=== PATIENT | female | born 1945 | race Hispanic/Latino ===

== ENCOUNTER 2017-06-03 12:41 | Emergency (ER) | payer MEDICARE ==
[~2017-06-03 12:41] MED LIST: AMLO10TA2 PO; ASPI-555 PO; FURO20TA4 PO; INSNOV SQ; INSU100C6 SQ; ISOS5TAB5 PO; LEVO125 PO; LEVO125T11 PO; LISI-613 PO; LORA10TA7 PO; MECL-111 PO; MELO-106 PO; METF500T6 PO; ONDA4TAB10 PO; SIMV20TA6 PO; TYL3B PO
[2017-06-03 13:42] LABS: BASOPHILS % (AUTO) 0.6 % (0.0-5.0); EOSINOPHILS % (AUTO) 1.5 % (0.0-8.0); HEMATOCRIT 25.2 % (36-48); LYMPHOCYTES % (AUTO) 29.9 % (21.0-51.0); MEAN CORPUSCULAR HEMOGLOBIN 31.9 pg (27.0-33.0); MEAN CORPUSCULAR HGB CONC 34.8 g/dL (32.0-36.0); MEAN CORPUSCULAR VOLUME 91.4 fL (79-99); MONOCYTES % (AUTO) 9.5 % (3.0-13.0); NEUTROPHILS % (AUTO) 58.5 % (40.0-77.0); PLATELET COUNT (AUTO) 224 K/uL (130-400); RED BLOOD CELL COUNT(AUTO) 2.76 MIL/uL (4.00-5.50); RED CELL DISTRIBUTION WIDTH 15.2 % (11.0-15.5); WHITE BLOOD COUNT (AUTO) 5.5 K/uL (4.8-10.8)
[2017-06-03 13:56] LABS: CREATININE 1.7 mg/dL (0.5-1.5); POTASSIUM 4.8 mmol/L (3.5-5.1)
[2017-06-03 14:01] LABS: ALBUMIN 2.8 g/dL (3.5-5.0); BILIRUBIN,TOTAL 0.4 mg/dL (0.2-1.0)
[2017-06-03 14:09] LABS: INR 0.9 (0.85-1.15); PARTIAL THROMBOPLASTIN TIME 21.4 SEC (26.3-35.5); PROTHROMBIN TIME 9.5 SEC (9.6-11.6)
[2017-06-03] MEDS ORDERED: METOCLOPRAMIDE 10 MG TABLET ONE (19:28)
== END 2017-06-03 19:56 | disposition home or self-care (01) ==
LOC: EDH 12:41
DX: R11.2 Nausea with vomiting, unspecified (principal); E10.8 Type 1 diabetes mellitus with unspecified complications; M54.30 Sciatica, unspecified side; I10 Essential (primary) hypertension; R79.1 Abnormal coagulation profile; E07.9 Disorder of thyroid, unspecified; Z79.4 Long term (current) use of insulin
CPT/HCPCS: 36415; 76775; 80053; 82948; 83690; 85025; 85610; 85730; 86677; 93005

== ENCOUNTER 2017-06-05 18:09 | Inpatient (IN) | payer MEDICARE ==
[~2017-06-05] VITALS: Ht 149.9 cm; Wt 48.2 kg
[2017-06-05] MEDS ORDERED: ONDANSETRON HCL MDV 20ML 2 MG/ML VIAL ONE (19:12)
[2017-06-05 19:22] LABS: BASOPHILS % (AUTO) 0.7 % (0.0-5.0); EOSINOPHILS % (AUTO) 0.4 % (0.0-8.0); HEMATOCRIT 27.5 % (36-48); LYMPHOCYTES % (AUTO) 20.3 % (21.0-51.0); MEAN CORPUSCULAR HEMOGLOBIN 32.1 pg (27.0-33.0); MEAN CORPUSCULAR HGB CONC 34.7 g/dL (32.0-36.0); MEAN CORPUSCULAR VOLUME 92.6 fL (79-99); MONOCYTES % (AUTO) 8.6 % (3.0-13.0); NUCLEATED RED BLOOD CELLS 0.1 % (0.0-0.19); PLATELET COUNT (AUTO) 214 K/uL (130-400); RED BLOOD CELL COUNT(AUTO) 2.97 MIL/uL (4.00-5.50)
[2017-06-05 19:29] LABS: BILIRUBIN,TOTAL 0.7 mg/dL (0.2-1.0); CREATININE 1.6 mg/dL (0.5-1.5); TOTAL PROTEIN, SERUM 6.2 g/dL (6.0-8.3)
[2017-06-05 19:35] LABS: POTASSIUM 6.9 mmol/L (3.5-5.1)
[2017-06-05 19:53] LABS: INR 0.9 (0.85-1.15); PARTIAL THROMBOPLASTIN TIME 22.7 SEC (26.3-35.5); PROTHROMBIN TIME 9.5 SEC (9.6-11.6)
[2017-06-05 20:05] LABS: T4 (THYROXINE) 10.2 mcg/dL (4.7-13.3); THYROID STIMULATING HORMONE 0.11 uIU/mL (0.36-3.74)
[2017-06-05] MEDS ORDERED: ALBUTEROL SULFATE 0.083% 2.5 MG/3 ML INH IH ONE (21:13)
[2017-06-05] MEDS ORDERED: SODIUM BICARB 50MEQ 50ML VIAL ONE (21:17)
[2017-06-05] MEDS ORDERED: SODIUM POLYSTYRENE SULFONATE 15 GM/60 ML ML ONE (21:17)
[2017-06-05] MEDS ORDERED: INSULIN HUMULIN R 100 UNIT/ML 3ML ONE ×2 (21:18→22:53)
[2017-06-05] MEDS ORDERED: DEXTROSE 50%-WATER 50 ML DISP.SYRIN IV ONE (21:18)
[2017-06-05 21:48] LABS: BILIRUBIN,URINE Negative (NEGATIVE); COLOR,URINE Yellow (YELLOW); GLUCOSE, URINE (UA) >=1000 mg/dL (NEGATIVE); KETONES,URINE 40 mg/dL (NEGATIVE); LEUKOCYTE ESTERASE ,URINE Trace (NEGATIVE); NITRATE,URINE Positive (NEGATIVE); OCCULT BLOOD,URINE Negative (NEGATIVE); PROTEIN,URINE Negative (NEGATIVE)
[2017-06-05 21:49] LABS: APPEARANCE,URINE SLIGHTLY CLOUDY (CLEAR)
[2017-06-05 22:04] LABS: BACTERIA,URINE Few /HPF (None Seen); HYALINE CASTS, URINE 0-1 /LPF (0-1 /LPF); RBC,URINE 0-1 /HPF (0-1); SQUAMOUS EPITHELIAL CELL,UR Few /HPF (0-2)
[2017-06-05 22:08] LABS: CREATININE 1.7 mg/dL (0.5-1.5)
[2017-06-05 22:09] LABS: POTASSIUM 6.1 mmol/L (3.5-5.1)
[2017-06-05 22:31] LABS: ABG BASE EXCESS -10.7 mmol/L (-2.0-3.0); ABG HCO3 15.4 mmol/L (21.0-28.0); ABG OXYGEN SATURATION 92.7 % (95.0-99.0); ABG PCO2 36 mmHg (32-45)
[2017-06-05] MEDS ORDERED: SODIUM CHLORIDE 0.9% 100 ML IV ONE (22:51)
[2017-06-06] VITALS (21 sets, daily range): BP systolic 104–159; BP diastolic 46–81
[2017-06-06] MEDS ORDERED: IPRATROPIUM 0.5 MG/2.5 ML INH IH PRN (01:45)
[2017-06-06] MEDS ORDERED: POTASSIUM CHLORIDE 10% ELIXIR 20 MEQ/15 ML UDCUP PO PRN (01:45)
[2017-06-06] MEDS ORDERED: INSULIN REGULAR, HUMAN 3ML 100 UNIT in SODIUM CHLORIDE 0.9% 99 ML IV PRN ×2 (01:45)
[2017-06-06] MEDS ORDERED: POTASSIUM CHLORIDE 20MEQ/100ML 100 ML IV PRN (01:45)
[2017-06-06] MEDS ORDERED: LACTULOSE 20 GM/30 ML UDCUP PO PRN (01:45)
[2017-06-06] MEDS ORDERED: ONDANSETRON HCL 4 MG/2 ML VIAL IVP PRN (01:45)
[2017-06-06] MEDS ORDERED: CLONIDINE HCL 0.1 MG TABLET PO PRN (01:45)
[2017-06-06] MEDS ORDERED: DiphenhydrAMINE HCL 50 MG/ML VIAL IVP PRN (01:45)
[2017-06-06] MEDS: SODIUM CHLORIDE 0.9% 1000ML 1,000 ML IV SCH ×2 (01:45→08:41)
[2017-06-06] MEDS ORDERED: LIDOCAINE HCL-MPF 1% 2ML VIAL IJ PRN (01:45)
[2017-06-06] MEDS ORDERED: ACETAMINOPHEN 325 MG TAB PO PRN ×2 (01:45)
[2017-06-06] MEDS ORDERED: NITROGLYCERIN 0.4 MG SL TAB SL PRN (01:45)
[2017-06-06] MEDS ORDERED: POTASSIUM CHLORIDE 20 MEQ ERTAB PO PRN (01:45)
[2017-06-06] MEDS ORDERED: ONDANSETRON HCL MDV 20ML 2 MG/ML VIAL IVP PRN (02:15)
[2017-06-06] MEDS ORDERED: DEXTROSE 10%-WATER 1,000 ML IV ONE (03:21)
[2017-06-06 04:03] LABS: BASOPHILS % (AUTO) 0.2 % (0.0-5.0); HEMATOCRIT 28.2 % (36-48); MEAN CORPUSCULAR HGB CONC 33.6 g/dL (32.0-36.0); MEAN CORPUSCULAR VOLUME 92.1 fL (79-99); MONOCYTES % (AUTO) 5.9 % (3.0-13.0); NEUTROPHILS % (AUTO) 76.9 % (40.0-77.0); PLATELET COUNT (AUTO) 245 K/uL (130-400); RED BLOOD CELL COUNT(AUTO) 3.06 MIL/uL (4.00-5.50); RED CELL DISTRIBUTION WIDTH 15.1 % (11.0-15.5); WHITE BLOOD COUNT (AUTO) 8.2 K/uL (4.8-10.8)
[2017-06-06 04:08] LABS: CREATININE 1.8 mg/dL (0.5-1.5)
[2017-06-06 04:16] LABS: HEMOGLOBIN A1C 9.5 % (4.0-6.0)
[2017-06-06] MEDS ORDERED: DEXTROSE 10%-WATER 1,000 ML IV SCH (04:30)
[2017-06-06 04:40] LABS: ABG BASE EXCESS -0.2 mmol/L (-2.0-3.0); ABG HCO3 25.6 mmol/L (21.0-28.0); ABG OXYGEN SATURATION 69.3 % (95.0-99.0); ABG PCO2 46 mmHg (32-45)
[2017-06-06 04:42] LABS: ACETONE,BLOOD NEGATIVE (NEGATIVE)
[2017-06-06 05:08] LABS: CARBON DIOXIDE 23 mmol/L (21-32); CHLORIDE 101 mmol/L (101-111); CREATININE 1.8 mg/dL (0.5-1.5); GLOMERULAR FILTR. RATE CALC 30 mL/min (>60); GLUCOSE,RANDOM 132 mg/dL (70-105); POTASSIUM 5.3 mmol/L (3.5-5.1); SODIUM SERUM 141 mmol/L (136-145); UREA NITROGEN, BLOOD 22 mg/dL (7-18)
[2017-06-06] MEDS ORDERED: CITA10TA7 PO (06:14)
[2017-06-06] MEDS ORDERED: METO10TA3 PO (06:14)
[2017-06-06] MEDS ORDERED: METO25TA6 PO (06:14)
[2017-06-06 07:39] LABS: CREATININE 1.6 mg/dL (0.5-1.5); POTASSIUM 5.6 mmol/L (3.5-5.1)
[2017-06-06] MEDS ORDERED: ALPRAZOLAM 0.5 MG TABLET PO PRN (08:00)
[2017-06-06] MEDS ORDERED: METFORMIN HCL 500 MG TABLET PO SCH (08:00)
[2017-06-06] MEDS ORDERED: CEFTRIAXONE 1GM/D5W 50ML 50 ML IV SCH (08:00)
[2017-06-06] MEDS ORDERED: CEFTRIAXONE SODIUM 1 GM IVP SCH (08:15)
[2017-06-06] MEDS: ISOSORBIDE DINITRATE 10 MG TABLET PO SCH (08:19)
[2017-06-06] MEDS: ASPIRIN 81 MG EC TAB PO SCH (08:20)
[2017-06-06] MEDS: METOPROLOL TARTRATE 25 MG TAB PO SCH ×2 (08:21→21:03)
[2017-06-06] MEDS: ENOXAPARIN SODIUM 30 MG/0.3 ML SQ SCH (08:22)
[2017-06-06] MEDS: INSULIN LISPRO 100 UNIT/ML 3ML SQ SCH ×2 (08:41→20:58)
[2017-06-06] MEDS ORDERED: LISINOPRIL 20 MG TABLET PO SCH (09:00)
[2017-06-06] MEDS ORDERED: FAMOTIDINE 20MG TAB 20 MG TAB PO SCH (09:00)
[2017-06-06] MEDS ORDERED: CITALOPRAM 20 MG TABLET PO SCH (09:00)
[2017-06-06] MEDS ORDERED: SODIUM POLYSTYRENE SULFONATE 15 GM/60 ML ML PO SCH (10:30)
[2017-06-06] MEDS ORDERED: DEXTROSE 50%-WATER 50 ML DISP.SYRIN IV ONE ×2 (11:00→14:13)
[2017-06-06] MEDS: METOCLOPRAMIDE 10 MG TABLET PO SCH ×3 (11:11→21:02)
[2017-06-06 13:50] LABS: CHLORIDE,URINE RANDOM 57 mmol/L (110-250); POTASSIUM,URINE RANDOM 24 mmol/L (25-125); SODIUM,URINE RANDOM 50 mmol/l (40-220)
[2017-06-06 14:34] LABS: CREATININE 1.5 mg/dL (0.5-1.5); POTASSIUM 4.8 mmol/L (3.5-5.1)
[2017-06-06] MEDS ORDERED: DEXTROSE 5 %-0.45 % NACL 1,000 ML IV SCH (14:45)
[2017-06-06] MEDS ORDERED: ZOSYN 3.375GM+NS 50ML 50 ML IV SCH (16:45)
[2017-06-06 17:48] LABS: CREATININE 1.3 mg/dL (0.5-1.5); POTASSIUM 5.2 mmol/L (3.5-5.1)
[2017-06-06] MEDS: [UNRECOGNIZED DRUG - OTHER] IV SCH (18:01)
[2017-06-06] MEDS: MEROPENEM 1 GM VIAL IVP SCH (18:01)
[2017-06-06] MEDS: DOXYCYCLINE 100 MG IV SCH (18:01)
[2017-06-06] MEDS: FLUCONAZOLE 100 MG TAB PO SCH (18:03)
[2017-06-06] MEDS ORDERED: DEXTROSE 50%-WATER 50 ML DISP.SYRIN IV PRN (18:45)
[2017-06-06] MEDS: DEXTROSE 10%-WATER 1,000 ML IV SCH (19:00)
[2017-06-06] MEDS: HONEY 1 APPL/ML TUBE TP SCH (21:15)
[2017-06-07 03:36] LABS: HEMATOCRIT 26.4 % (36-48); MEAN CORPUSCULAR HEMOGLOBIN 31.7 pg (27.0-33.0); MEAN CORPUSCULAR HGB CONC 34.7 g/dL (32.0-36.0); MEAN CORPUSCULAR VOLUME 91.4 fL (79-99); PLATELET COUNT (AUTO) 182 K/uL (130-400); RED BLOOD CELL COUNT(AUTO) 2.89 MIL/uL (4.00-5.50); WHITE BLOOD COUNT (AUTO) 4.9 K/uL (4.8-10.8)
[2017-06-07 03:57] LABS: ALBUMIN 2.4 g/dL (3.5-5.0); BILIRUBIN,TOTAL 0.2 mg/dL (0.2-1.0); CREATININE 1.3 mg/dL (0.5-1.5); MAGNESIUM 1.5 mg/dL (1.80-2.40); PHOSPHORUS 2.6 mg/dL (2.5-4.9); POTASSIUM 4.5 mmol/L (3.5-5.1); THYROID STIMULATING HORMONE 0.18 uIU/mL (0.36-3.74); TOTAL PROTEIN, SERUM 5.2 g/dL (6.0-8.3)
[2017-06-07 03:59] VITALS: BP 142/65
[2017-06-07] MEDS: MEROPENEM 1 GM VIAL IVP SCH ×3 (04:18→16:35)
[2017-06-07] MEDS: [UNRECOGNIZED DRUG - OTHER] IV SCH ×2 (04:19→16:47)
[2017-06-07] MEDS: DOXYCYCLINE 100 MG IV SCH ×2 (04:19→16:47)
[2017-06-07 04:24] LABS: ABG BASE EXCESS 5.8 mmol/L (-2.0-3.0); ABG OXYGEN SATURATION 98.5 % (95.0-99.0); ABG PCO2 47 mmHg (32-45)
[2017-06-07] MEDS ORDERED: MAGNESIUM 2GM PREMIX 50ML 50 ML IV PRN (07:00)
[2017-06-07] MEDS: METOCLOPRAMIDE 10 MG TABLET PO SCH ×4 (07:04→20:05)
[2017-06-07] MEDS: LEVOTHYROXINE 125 MCG TABLET PO SCH (07:04)
[2017-06-07] MEDS: INSULIN LISPRO 100 UNIT/ML 3ML SQ SCH ×2 (07:06→20:06)
[2017-06-07 07:19] VITALS: BP 166/82
[2017-06-07] MEDS ORDERED: INSULIN LISPRO 100 UNIT/ML 3ML SQ SCH (07:30)
[2017-06-07] MEDS: METOPROLOL TARTRATE 25 MG TAB PO SCH ×2 (08:39→20:05)
[2017-06-07] MEDS: FAMOTIDINE 20MG TAB 20 MG TAB PO SCH (08:39)
[2017-06-07] MEDS: FLUCONAZOLE 100 MG TAB PO SCH (08:39)
[2017-06-07] MEDS: ASPIRIN 81 MG EC TAB PO SCH (08:39)
[2017-06-07] MEDS: ISOSORBIDE DINITRATE 10 MG TABLET PO SCH (08:40)
[2017-06-07] MEDS: CITALOPRAM 20 MG TABLET PO SCH (08:42)
[2017-06-07] MEDS: ENOXAPARIN SODIUM 30 MG/0.3 ML SQ SCH (08:44)
[2017-06-07] MEDS: DEXTROSE 10%-WATER 1,000 ML IV SCH (10:14)
[2017-06-07 11:19] VITALS: BP 126/64
[2017-06-07 16:33] VITALS: BP 150/70
[2017-06-07] MEDS: HONEY 1 APPL/ML TUBE TP SCH (20:14)
[2017-06-07 20:56] VITALS: BP 156/70
[2017-06-08] VITALS (7 sets, daily range): BP systolic 135–159; BP diastolic 62–75
[2017-06-08 04:06] LABS: HEMATOCRIT 28.4 % (36-48); MEAN CORPUSCULAR HEMOGLOBIN 30.8 pg (27.0-33.0); MEAN CORPUSCULAR HGB CONC 33.9 g/dL (32.0-36.0); MEAN CORPUSCULAR VOLUME 90.7 fL (79-99); PLATELET COUNT (AUTO) 201 K/uL (130-400); RED BLOOD CELL COUNT(AUTO) 3.13 MIL/uL (4.00-5.50); RED CELL DISTRIBUTION WIDTH 14.9 % (11.0-15.5)
[2017-06-08 04:14] LABS: CREATININE 1.1 mg/dL (0.5-1.5); MAGNESIUM 1.8 mg/dL (1.80-2.40); POTASSIUM 4.8 mmol/L (3.5-5.1)
[2017-06-08] MEDS: DOXYCYCLINE 100 MG IV SCH (05:00)
[2017-06-08] MEDS: [UNRECOGNIZED DRUG - OTHER] IV SCH (05:00)
[2017-06-08] MEDS: MEROPENEM 1 GM VIAL IVP SCH (05:00)
[2017-06-08] MEDS: METOCLOPRAMIDE 10 MG TABLET PO SCH ×4 (06:16→19:59)
[2017-06-08] MEDS: LEVOTHYROXINE 125 MCG TABLET PO SCH (06:16)
[2017-06-08] MEDS: INSULIN LISPRO 100 UNIT/ML 3ML SQ SCH (06:18)
[2017-06-08] MEDS: METOPROLOL TARTRATE 25 MG TAB PO SCH ×2 (09:07→19:59)
[2017-06-08] MEDS: CEPHALEXIN 500 MG CAPSULE PO SCH ×2 (09:07→19:59)
[2017-06-08] MEDS: FAMOTIDINE 20MG TAB 20 MG TAB PO SCH (09:07)
[2017-06-08] MEDS: CITALOPRAM 20 MG TABLET PO SCH (09:07)
[2017-06-08] MEDS: ASPIRIN 81 MG EC TAB PO SCH (09:07)
[2017-06-08] MEDS: ISOSORBIDE DINITRATE 10 MG TABLET PO SCH (09:07)
[2017-06-08] MEDS: ENOXAPARIN SODIUM 30 MG/0.3 ML SQ SCH (09:09)
[2017-06-08] MEDS: LACTOBACILLUS RHAMNOSUS GG 1 EACH CAP.SPRINK PO SCH ×2 (09:15→16:59)
[2017-06-08] MEDS: HONEY 1 APPL/ML TUBE TP SCH (20:04)
[2017-06-08] MEDS ORDERED: INSULIN LISPRO 100 UNIT/ML 3ML SQ SCH (21:00)
[2017-06-09 03:42] VITALS: BP 100/74
[2017-06-09 04:30] LABS: CREATININE 0.9 mg/dL (0.5-1.5); POTASSIUM 4.6 mmol/L (3.5-5.1)
[2017-06-09] MEDS: LEVOTHYROXINE 125 MCG TABLET PO SCH (06:02)
[2017-06-09] MEDS: METOCLOPRAMIDE 10 MG TABLET PO SCH ×4 (06:02→20:17)
[2017-06-09] MEDS: INSULIN LISPRO 100 UNIT/ML 3ML SQ SCH (06:03)
[2017-06-09 07:35] VITALS: BP 149/75
[2017-06-09] MEDS: LACTOBACILLUS RHAMNOSUS GG 1 EACH CAP.SPRINK PO SCH ×2 (08:00→16:43)
[2017-06-09] MEDS: CEPHALEXIN 500 MG CAPSULE PO SCH ×2 (09:20→20:17)
[2017-06-09] MEDS: FAMOTIDINE 20MG TAB 20 MG TAB PO SCH (09:20)
[2017-06-09] MEDS: ASPIRIN 81 MG EC TAB PO SCH (09:20)
[2017-06-09] MEDS: CITALOPRAM 20 MG TABLET PO SCH (09:21)
[2017-06-09] MEDS: ISOSORBIDE DINITRATE 10 MG TABLET PO SCH (09:21)
[2017-06-09] MEDS: METOPROLOL TARTRATE 25 MG TAB PO SCH ×2 (09:21→20:17)
[2017-06-09] MEDS: ENOXAPARIN SODIUM 30 MG/0.3 ML SQ SCH (09:22)
[2017-06-09 11:50] VITALS: BP 159/73
[2017-06-09 16:15] VITALS: BP 170/79
[2017-06-09] MEDS ORDERED: INSULIN LISPRO 100 UNIT/ML 3ML SQ SCH ×2 (17:00→21:00)
[2017-06-09 19:27] VITALS: BP 126/67
[2017-06-09] MEDS: HONEY 1 APPL/ML TUBE TP SCH (20:17)
[2017-06-09 23:58] VITALS: BP 158/73
[2017-06-10 03:32] VITALS: BP 172/78
[2017-06-10 04:15] LABS: CREATININE 0.8 mg/dL (0.5-1.5); POTASSIUM 4.3 mmol/L (3.5-5.1)
[2017-06-10] MEDS: METOCLOPRAMIDE 10 MG TABLET PO SCH (06:18)
[2017-06-10] MEDS: INSULIN LISPRO 100 UNIT/ML 3ML SQ SCH (06:18)
[2017-06-10] MEDS: LEVOTHYROXINE 125 MCG TABLET PO SCH (06:18)
[2017-06-10] MEDS ORDERED: INSULIN LISPRO 100 UNIT/ML 3ML SQ SCH (07:30)
[2017-06-10 07:53] VITALS: BP 157/78
[2017-06-10] MEDS ORDERED: CEPH500C2 PO (07:55)
[2017-06-10] MEDS: ENOXAPARIN SODIUM 30 MG/0.3 ML SQ SCH (09:00)
[2017-06-10] MEDS: ASPIRIN 81 MG EC TAB PO SCH (09:26)
[2017-06-10] MEDS: CEPHALEXIN 500 MG CAPSULE PO SCH (09:26)
[2017-06-10] MEDS: LACTOBACILLUS RHAMNOSUS GG 1 EACH CAP.SPRINK PO SCH (09:26)
[2017-06-10] MEDS: FAMOTIDINE 20MG TAB 20 MG TAB PO SCH (09:26)
[2017-06-10] MEDS: METOPROLOL TARTRATE 25 MG TAB PO SCH (09:27)
[2017-06-10] MEDS: CITALOPRAM 20 MG TABLET PO SCH (09:27)
[2017-06-10] MEDS: ISOSORBIDE DINITRATE 10 MG TABLET PO SCH (09:28)
[2017-06-10] MEDS ORDERED: METF500T6 PO (10:46)
[2017-06-10] MEDS ORDERED: INSU100C6 SQ ×2 (11:00→11:01)
[2017-06-10 11:39] VITALS: BP 118/56
== END 2017-06-10 12:05 | disposition home or self-care (01) | DRG 871 ==
LOC: EDH 18:09 → EDHIP 23:00 → 2CH 06-06 01:20 → 2DH 06-07 15:09
PROVIDERS: ADMIT Internal Medicine; ATTEND Internal Medicine
DX: A41.9 Sepsis, unspecified organism (principal); E11.10 Type 2 diabetes mellitus with ketoacidosis without coma; N17.9 Acute kidney failure, unspecified; G92 Toxic encephalopathy; N39.0 Urinary tract infection, site not specified; W19.XXXA Unspecified fall, initial encounter; E11.21 Type 2 diabetes mellitus with diabetic nephropathy; D64.9 Anemia, unspecified; E11.22 Type 2 diabetes mellitus with diabetic chronic kidney disease; E11.51 Type 2 diabetes mellitus with diabetic peripheral angiopathy without gangrene; E86.0 Dehydration; E78.5 Hyperlipidemia, unspecified; E87.5 Hyperkalemia; E87.6 Hypokalemia; E89.0 Postprocedural hypothyroidism; F32.9 Major depressive disorder, single episode, unspecified; I12.9 Hypertensive chronic kidney disease with stage 1 through stage 4 chronic kidney disease, or unspecified chronic kidney disease; M19.90 Unspecified osteoarthritis, unspecified site; N18.9 Chronic kidney disease, unspecified; Z79.4 Long term (current) use of insulin; Z90.710 Acquired absence of both cervix and uterus; Z91.19 Patient's noncompliance with other medical treatment and regimen; Y93.89 Activity, other specified; Y92.89 Other specified places as the place of occurrence of the external cause; Y99.8 Other external cause status
CPT/HCPCS: 36415; 36600; 70450; 71045; 71046; 71250; 76770; 76775; 80048; 80051; 80053; 81001; 82009; 82550; 82803; 82948; 83036; 83605; 83690; 83735; 83880; 83935; 84100; 84436; 84443; 84481; 84484; 85025; 85027; 85610; 85730; 86677; 87088; 87804; 93005; 94640; 94664; 97039; 99291; A4218; J0696; J1650; J1815; J2185; J3475; J3490; J7030; J7070

== ENCOUNTER 2017-06-17 18:13 | Inpatient (IN) | payer MEDICARE ==
[~2017-06-17] VITALS: Ht 149.9 cm; Wt 49.5 kg
[~2017-06-17 18:13] MED LIST changes: +CEPH500C2 PO; +CITA10TA7 PO; -INSNOV SQ; -LEVO125 PO; +METO10TA3 PO; +METO25TA6 PO
[2017-06-17 19:02] LABS: EOSINOPHILS % (AUTO) 1.7 % (0.0-8.0); HEMATOCRIT 25.8 % (36-48); LYMPHOCYTES % (AUTO) 29.2 % (21.0-51.0); MEAN CORPUSCULAR HEMOGLOBIN 32.1 pg (27.0-33.0); MEAN CORPUSCULAR HGB CONC 35.2 g/dL (32.0-36.0); MEAN CORPUSCULAR VOLUME 91.1 fL (79-99); MONOCYTES % (AUTO) 8.4 % (3.0-13.0); NEUTROPHILS % (AUTO) 59.7 % (40.0-77.0); PLATELET COUNT (AUTO) 238 K/uL (130-400); RED BLOOD CELL COUNT(AUTO) 2.84 MIL/uL (4.00-5.50); WHITE BLOOD COUNT (AUTO) 5.7 K/uL (4.8-10.8)
[2017-06-17 19:13] LABS: CREATININE 0.8 mg/dL (0.5-1.5)
[2017-06-17 19:31] LABS: BILIRUBIN,TOTAL 0.3 mg/dL (0.2-1.0); CREATINE KINASE MB 2.9 ng/mL (0.5-3.6); TOTAL PROTEIN, SERUM 6.1 g/dL (6.0-8.3)
[2017-06-17 19:36] LABS: INR 0.89 (0.85-1.15); PARTIAL THROMBOPLASTIN TIME 22.7 SEC (26.3-35.5); PROTHROMBIN TIME 9.2 SEC (9.6-11.6)
[2017-06-17 19:50] LABS: APPEARANCE,URINE Clear (CLEAR); BILIRUBIN,URINE Negative (NEGATIVE); COLOR,URINE Yellow (YELLOW); GLUCOSE, URINE (UA) Negative (NEGATIVE); KETONES,URINE Negative (NEGATIVE); LEUKOCYTE ESTERASE ,URINE Negative (NEGATIVE); NITRATE,URINE Negative (NEGATIVE); OCCULT BLOOD,URINE Negative (NEGATIVE); PH,URINE 8.5 (5.0-8.0); PROTEIN,URINE Negative (NEGATIVE); UROBILINOGEN,URINE 0.2 mg/dL (0.2-1.0)
[2017-06-17] MEDS ORDERED: MORPHINE SULFATE 4 MG/1ML SYG ONE (21:08)
[2017-06-17] MEDS ORDERED: OCTYL 2-CYANOACRYLATE 1 EACH TP ONE (21:14)
[2017-06-17] MEDS ORDERED: ONDANSETRON HCL MDV 20ML 2 MG/ML VIAL ONE (21:26)
[2017-06-17] MEDS ORDERED: DEXAMETHASONE SOD PHOSPHATE 10MG/ML 1ML VIAL ONE (23:50)
[2017-06-18] VITALS (12 sets, daily range): BP systolic 109–212; BP diastolic 48–107
[2017-06-18] MEDS ORDERED: SODIUM CHLORIDE 0.9% 1000ML 1,000 ML IV ONE (04:42)
[2017-06-18] MEDS ORDERED: AMPICILLIN SODIUM/SULBACTAM NA 1.5GM VIAL ONE (04:43)
[2017-06-18] MEDS ORDERED: SODIUM CHLORIDE 0.9% 50 ML IV ONE (04:43)
[2017-06-18 05:08] LABS: BASOPHILS % (AUTO) 0.5 % (0.0-5.0); HEMATOCRIT 29.6 % (36-48); LYMPHOCYTES % (AUTO) 20.1 % (21.0-51.0); MEAN CORPUSCULAR HEMOGLOBIN 29.9 pg (27.0-33.0); MEAN CORPUSCULAR HGB CONC 32.7 g/dL (32.0-36.0); MEAN CORPUSCULAR VOLUME 91.4 fL (79-99); MONOCYTES % (AUTO) 1.1 % (3.0-13.0); NEUTROPHILS % (AUTO) 78.3 % (40.0-77.0); PLATELET COUNT (AUTO) 234 K/uL (130-400); RED BLOOD CELL COUNT(AUTO) 3.24 MIL/uL (4.00-5.50); RED CELL DISTRIBUTION WIDTH 14.8 % (11.0-15.5); WHITE BLOOD COUNT (AUTO) 5.9 K/uL (4.8-10.8)
[2017-06-18 05:15] LABS: CREATININE 0.9 mg/dL (0.5-1.5); POTASSIUM 5.4 mmol/L (3.5-5.1)
[2017-06-18 05:16] LABS: INR 0.9 (0.85-1.15); PROTHROMBIN TIME 9.3 SEC (9.6-11.6)
[2017-06-18] MEDS ORDERED: MELO-108 PO (09:33)
[2017-06-18] MEDS ORDERED: NAPR-1023 PO (09:33)
[2017-06-18] MEDS ORDERED: TRAM50TA4 PO (09:33)
[2017-06-18] MEDS ORDERED: LACTULOSE 20 GM/30 ML UDCUP PO PRN ×2 (10:15)
[2017-06-18] MEDS ORDERED: IPRATROPIUM 0.5 MG/2.5 ML INH IH PRN (10:15)
[2017-06-18] MEDS ORDERED: POTASSIUM CHLORIDE 10% ELIXIR 20 MEQ/15 ML UDCUP PO PRN (10:15)
[2017-06-18] MEDS ORDERED: NITROGLYCERIN 0.4 MG SL TAB SL PRN ×2 (10:15)
[2017-06-18] MEDS ORDERED: ACETAMINOPHEN-CODEINE 300/30MG TAB PO PRN ×3 (10:15)
[2017-06-18] MEDS ORDERED: ONDANSETRON HCL 4 MG/2 ML VIAL IVP PRN (10:15)
[2017-06-18] MEDS ORDERED: POTASSIUM CHLORIDE 20MEQ/100ML 100 ML IV PRN (10:15)
[2017-06-18] MEDS ORDERED: ONDANSETRON HCL 4 MG/2 ML VIAL IV PRN (10:15)
[2017-06-18] MEDS ORDERED: DEXTROSE 50%-WATER 50 ML DISP.SYRIN IV PRN (10:15)
[2017-06-18] MEDS ORDERED: SODIUM CHLORIDE 0.9% 1000ML 1,000 ML IV SCH (10:15)
[2017-06-18] MEDS ORDERED: GLUCAGON 1MG KIT 1 MG ML IM PRN (10:15)
[2017-06-18] MEDS ORDERED: LIDOCAINE HCL-MPF 1% 2ML VIAL IJ PRN (10:15)
[2017-06-18] MEDS ORDERED: GUAIFENESIN-DM 200/20 MG 10 ML PO PRN (10:15)
[2017-06-18] MEDS ORDERED: ONDANSETRON HCL MDV 20ML 2 MG/ML VIAL IVP PRN (10:15)
[2017-06-18] MEDS ORDERED: POTASSIUM CHLORIDE 20 MEQ ERTAB PO PRN (10:15)
[2017-06-18] MEDS ORDERED: ACETAMINOPHEN 325 MG TAB PO PRN ×3 (10:15)
[2017-06-18] MEDS ORDERED: MAG HYDROX/AL HYDROX/SIMETH ES 30 ML SUSP UDCUP PO PRN (10:15)
[2017-06-18] MEDS ORDERED: MORPHINE SULFATE 4 MG/1ML SYG IV PRN (10:15)
[2017-06-18] MEDS ORDERED: MORPHINE SULFATE 4 MG/1ML SYG IVP PRN (10:30)
[2017-06-18] MEDS: FAMOTIDINE 20MG TAB 20 MG TAB PO SCH (10:34)
[2017-06-18] MEDS: CLONIDINE HCL 0.1 MG TABLET PO PRN (10:35)
[2017-06-18] MEDS: HYDRALAZINE HCL 20 MG/ML VIAL IV PRN (10:35)
[2017-06-18] MEDS: UNASYN 1.5GM+NS 100ML 100 ML IV SCH ×3 (10:55→21:16)
[2017-06-18] MEDS: INSULIN R PO SSI SQ SCH ×3 (11:39→20:36)
[2017-06-18] MEDS ORDERED: INSU100I24 SQ (12:17)
[2017-06-18] MEDS ORDERED: INSU100C6 SQ (12:17)
[2017-06-18] MEDS: METOPROLOL TARTRATE 25 MG TAB PO SCH (20:17)
[2017-06-19 03:00] VITALS: BP 135/57
[2017-06-19] MEDS: UNASYN 1.5GM+NS 100ML 100 ML IV SCH ×4 (03:01→22:05)
[2017-06-19 04:12] LABS: HEMATOCRIT 23.2 % (36-48); MEAN CORPUSCULAR HEMOGLOBIN 32.3 pg (27.0-33.0); MEAN CORPUSCULAR HGB CONC 35.6 g/dL (32.0-36.0); MEAN CORPUSCULAR VOLUME 90.8 fL (79-99); PLATELET COUNT (AUTO) 250 K/uL (130-400); RED BLOOD CELL COUNT(AUTO) 2.56 MIL/uL (4.00-5.50); RED CELL DISTRIBUTION WIDTH 14.6 % (11.0-15.5); WHITE BLOOD COUNT (AUTO) 5.8 K/uL (4.8-10.8)
[2017-06-19 04:19] LABS: CREATININE 0.8 mg/dL (0.5-1.5)
[2017-06-19] MEDS: INSULIN R PO SSI SQ SCH (06:10)
[2017-06-19 07:00] VITALS: BP_SYST 112; BP_SYST 137; BP_DIAS 58; BP_DIAS 72
[2017-06-19] MEDS ORDERED: KETOROLAC TROMETHAMINE 15MG/ML IV PRN (07:45)
[2017-06-19] MEDS: METFORMIN HCL 500 MG TAB.SR.24H PO SCH (08:36)
[2017-06-19] MEDS: METOPROLOL TARTRATE 25 MG TAB PO SCH ×2 (09:00→21:01)
[2017-06-19 11:00] VITALS: BP 145/65
[2017-06-19] MEDS: FAMOTIDINE 20MG TAB 20 MG TAB PO SCH (11:38)
[2017-06-19] MEDS: CITALOPRAM 20 MG TABLET PO SCH (11:39)
[2017-06-19] MEDS: INSULIN LISPRO 100 UNIT/ML 3ML SQ SCH ×2 (12:01→16:59)
[2017-06-19 16:00] VITALS: BP 169/73
[2017-06-19 20:16] VITALS: BP 165/78
[2017-06-19] MEDS: INSULIN DEGLUDEC 26 UNIT SQ SCH (21:00)
[2017-06-19] MEDS: CLONIDINE HCL 0.1 MG TABLET PO PRN (21:01)
[2017-06-19 23:57] VITALS: BP 163/74
[2017-06-20] MEDS: HYDRALAZINE HCL 20 MG/ML VIAL IV PRN (00:37)
[2017-06-20] MEDS: UNASYN 1.5GM+NS 100ML 100 ML IV SCH ×4 (04:19→21:00)
[2017-06-20 04:45] VITALS: BP 124/61
[2017-06-20 05:55] LABS: HEMATOCRIT 24.3 % (36-48); MEAN CORPUSCULAR HEMOGLOBIN 30.2 pg (27.0-33.0); MEAN CORPUSCULAR HGB CONC 33.1 g/dL (32.0-36.0); MEAN CORPUSCULAR VOLUME 91.2 fL (79-99); PLATELET COUNT (AUTO) 259 K/uL (130-400); RED BLOOD CELL COUNT(AUTO) 2.66 MIL/uL (4.00-5.50); RED CELL DISTRIBUTION WIDTH 14.5 % (11.0-15.5); WHITE BLOOD COUNT (AUTO) 4.8 K/uL (4.8-10.8)
[2017-06-20 05:57] LABS: CREATININE 0.8 mg/dL (0.5-1.5); POTASSIUM 3.9 mmol/L (3.5-5.1)
[2017-06-20] MEDS: INSULIN LISPRO 100 UNIT/ML 3ML SQ SCH ×3 (07:30→17:39)
[2017-06-20] MEDS: METFORMIN HCL 500 MG TAB.SR.24H PO SCH (08:00)
[2017-06-20 08:03] VITALS: BP 106/58
[2017-06-20] MEDS: METOPROLOL TARTRATE 25 MG TAB PO SCH ×2 (09:00→21:00)
[2017-06-20] MEDS: FAMOTIDINE 20MG TAB 20 MG TAB PO SCH (09:20)
[2017-06-20] MEDS: CITALOPRAM 20 MG TABLET PO SCH (09:20)
[2017-06-20 11:16] LABS: RETICULOCYTE % (AUTO) 1.04 % (0.42-2.23)
[2017-06-20 11:28] VITALS: BP 125/62
[2017-06-20] MEDS ORDERED: COMPOUND IV MISC 1 EACH IVSOLN MISC PRN (11:45)
[2017-06-20 12:21] LABS: % IRON SATURATION 22.9 % (22-44)
[2017-06-20] MEDS: IRON SUCROSE COMPLEX 100 MG in SODIUM CHLORIDE 0.9% 50 ML IV SCH (13:38)
[2017-06-20 16:20] VITALS: BP 151/72
[2017-06-20 19:50] VITALS: BP 156/75
[2017-06-21] MEDS: HYDRALAZINE HCL 20 MG/ML VIAL IV PRN (00:09)
[2017-06-21 00:17] VITALS: BP 174/99
[2017-06-21 04:00] VITALS: BP 141/72
[2017-06-21] MEDS: UNASYN 1.5GM+NS 100ML 100 ML IV SCH ×4 (05:21→22:55)
[2017-06-21] MEDS: ACETAMINOPHEN 325 MG TAB PO PRN (05:24)
[2017-06-21] MEDS ORDERED: LEVOTHYROXINE 125 MCG TABLET PO SCH (07:30)
[2017-06-21 08:00] VITALS: BP_SYST 103; BP_SYST 142; BP_DIAS 67; BP_DIAS 70
[2017-06-21] MEDS: FAMOTIDINE 20MG TAB 20 MG TAB PO SCH (08:43)
[2017-06-21] MEDS: LISINOPRIL 20 MG TABLET PO SCH (08:43)
[2017-06-21] MEDS: METOPROLOL TARTRATE 25 MG TAB PO SCH ×2 (08:43→21:02)
[2017-06-21] MEDS: CITALOPRAM 20 MG TABLET PO SCH (08:43)
[2017-06-21] MEDS: INSULIN LISPRO 100 UNIT/ML 3ML SQ SCH ×3 (08:45→17:27)
[2017-06-21] MEDS: IRON SUCROSE COMPLEX 100 MG in SODIUM CHLORIDE 0.9% 50 ML IV SCH (08:52)
[2017-06-21 11:32] VITALS: BP 150/52
[2017-06-21 16:00] VITALS: BP 148/58
[2017-06-21] MEDS ORDERED: IPRATROPIUM/ALBUTEROL SULFATE 3 ML SOLUTION IH PRN (18:45)
[2017-06-21] MEDS: INSULIN DEGLUDEC 26 UNIT SQ SCH ×2 (21:00)
[2017-06-21 21:30] VITALS: BP 162/71
[2017-06-22 00:01] VITALS: BP 149/66
[2017-06-22] MEDS: UNASYN 1.5GM+NS 100ML 100 ML IV SCH ×4 (04:12→22:19)
[2017-06-22 04:25] VITALS: BP 142/65
[2017-06-22] MEDS: LEVOTHYROXINE 100 MCG TABLET PO SCH (06:39)
[2017-06-22] MEDS: LEVOTHYROXINE 75 MCG TABLET PO SCH (06:40)
[2017-06-22 07:46] LABS: HEMATOCRIT 27.3 % (36-48); MEAN CORPUSCULAR HEMOGLOBIN 31.9 pg (27.0-33.0); MEAN CORPUSCULAR HGB CONC 35.2 g/dL (32.0-36.0); MEAN CORPUSCULAR VOLUME 90.6 fL (79-99); NUCLEATED RED BLOOD CELLS 0.1 % (0.0-0.19); PLATELET COUNT (AUTO) 318 K/uL (130-400); RED BLOOD CELL COUNT(AUTO) 3.02 MIL/uL (4.00-5.50); RED CELL DISTRIBUTION WIDTH 14.9 % (11.0-15.5); WHITE BLOOD COUNT (AUTO) 6.2 K/uL (4.8-10.8)
[2017-06-22 08:00] VITALS: BP 166/71
[2017-06-22 08:18] LABS: CREATININE 0.7 mg/dL (0.5-1.5); POTASSIUM 4.1 mmol/L (3.5-5.1)
[2017-06-22] MEDS: METOPROLOL TARTRATE 25 MG TAB PO SCH ×2 (09:25→21:32)
[2017-06-22] MEDS: CITALOPRAM 20 MG TABLET PO SCH (09:25)
[2017-06-22] MEDS: FAMOTIDINE 20MG TAB 20 MG TAB PO SCH (09:25)
[2017-06-22] MEDS: LISINOPRIL 20 MG TABLET PO SCH (09:25)
[2017-06-22] MEDS: IRON SUCROSE COMPLEX 100 MG in SODIUM CHLORIDE 0.9% 50 ML IV SCH (09:26)
[2017-06-22] MEDS: INSULIN LISPRO 100 UNIT/ML 3ML SQ SCH ×3 (09:43→17:24)
[2017-06-22] MEDS: FUROSEMIDE 20 MG TABLET PO SCH (10:34)
[2017-06-22 11:51] VITALS: BP 158/71
[2017-06-22 16:00] VITALS: BP 172/78
[2017-06-22 20:41] VITALS: BP 152/68
[2017-06-22] MEDS: INSULIN DEGLUDEC 26 UNIT SQ SCH (21:00)
[2017-06-23] VITALS: BP 140/59
[2017-06-23] MEDS: UNASYN 1.5GM+NS 100ML 100 ML IV SCH ×4 (04:05→22:37)
[2017-06-23 04:06] VITALS: BP 157/77
[2017-06-23] MEDS: LEVOTHYROXINE 100 MCG TABLET PO SCH (06:38)
[2017-06-23] MEDS: LEVOTHYROXINE 75 MCG TABLET PO SCH (06:39)
[2017-06-23] MEDS: INSULIN LISPRO 100 UNIT/ML 3ML SQ SCH ×3 (06:40→17:00)
[2017-06-23 08:00] VITALS: BP 144/78
[2017-06-23] MEDS: FUROSEMIDE 20 MG TABLET PO SCH (09:28)
[2017-06-23] MEDS: CITALOPRAM 20 MG TABLET PO SCH (09:28)
[2017-06-23] MEDS: LISINOPRIL 20 MG TABLET PO SCH (09:28)
[2017-06-23] MEDS: FAMOTIDINE 20MG TAB 20 MG TAB PO SCH (09:28)
[2017-06-23] MEDS: METOPROLOL TARTRATE 25 MG TAB PO SCH ×2 (09:28→20:59)
[2017-06-23] MEDS: ENOXAPARIN SODIUM 30 MG/0.3 ML SQ SCH (09:31)
[2017-06-23] MEDS: IRON SUCROSE COMPLEX 100 MG in SODIUM CHLORIDE 0.9% 50 ML IV SCH (09:31)
[2017-06-23 11:47] VITALS: BP 138/57
[2017-06-23 16:00] VITALS: BP 144/65
[2017-06-23 20:15] VITALS: BP 157/70
[2017-06-23] MEDS: INSULIN DEGLUDEC 26 UNIT SQ SCH (21:00)
[2017-06-24] VITALS (7 sets, daily range): BP systolic 139–163; BP diastolic 61–73
[2017-06-24 05:32] LABS: HEMATOCRIT 23.7 % (36-48); MEAN CORPUSCULAR HGB CONC 34.7 g/dL (32.0-36.0); MEAN CORPUSCULAR VOLUME 92.3 fL (79-99); PLATELET COUNT (AUTO) 279 K/uL (130-400); RED BLOOD CELL COUNT(AUTO) 2.57 MIL/uL (4.00-5.50); RED CELL DISTRIBUTION WIDTH 15.1 % (11.0-15.5); WHITE BLOOD COUNT (AUTO) 5.9 K/uL (4.8-10.8)
[2017-06-24 05:40] LABS: CREATININE 0.8 mg/dL (0.5-1.5)
[2017-06-24] MEDS: UNASYN 1.5GM+NS 100ML 100 ML IV SCH ×4 (06:07→20:16)
[2017-06-24] MEDS: LEVOTHYROXINE 100 MCG TABLET PO SCH (06:46)
[2017-06-24] MEDS: LEVOTHYROXINE 75 MCG TABLET PO SCH (06:46)
[2017-06-24] MEDS: INSULIN LISPRO 100 UNIT/ML 3ML SQ SCH ×3 (09:35→17:04)
[2017-06-24] MEDS: FUROSEMIDE 20 MG TABLET PO SCH (09:39)
[2017-06-24] MEDS: FAMOTIDINE 20MG TAB 20 MG TAB PO SCH (09:39)
[2017-06-24] MEDS: METOPROLOL TARTRATE 25 MG TAB PO SCH ×2 (09:39→20:16)
[2017-06-24] MEDS: CITALOPRAM 20 MG TABLET PO SCH (09:39)
[2017-06-24] MEDS: ENOXAPARIN SODIUM 30 MG/0.3 ML SQ SCH (09:40)
[2017-06-24] MEDS: IRON SUCROSE COMPLEX 100 MG in SODIUM CHLORIDE 0.9% 50 ML IV SCH (09:41)
[2017-06-24] MEDS: INSULIN DEGLUDEC 26 UNIT SQ SCH (21:00)
[2017-06-25] VITALS (26 sets, daily range): BP systolic 95–186; BP diastolic 35–75
[2017-06-25] MEDS: UNASYN 1.5GM+NS 100ML 100 ML IV SCH ×4 (05:02→23:21)
[2017-06-25 05:47] LABS: CREATININE 0.7 mg/dL (0.5-1.5); POTASSIUM 4.3 mmol/L (3.5-5.1)
[2017-06-25 05:48] LABS: HEMATOCRIT 26.3 % (36-48); MEAN CORPUSCULAR HEMOGLOBIN 30.6 pg (27.0-33.0); MEAN CORPUSCULAR VOLUME 92.5 fL (79-99); PLATELET COUNT (AUTO) 296 K/uL (130-400); RED BLOOD CELL COUNT(AUTO) 2.85 MIL/uL (4.00-5.50); RED CELL DISTRIBUTION WIDTH 15.2 % (11.0-15.5); WHITE BLOOD COUNT (AUTO) 7.9 K/uL (4.8-10.8)
[2017-06-25] MEDS: LEVOTHYROXINE 75 MCG TABLET PO SCH (06:20)
[2017-06-25] MEDS: LEVOTHYROXINE 100 MCG TABLET PO SCH (06:20)
[2017-06-25] MEDS: INSULIN LISPRO 100 UNIT/ML 3ML SQ SCH ×3 (06:21→17:00)
[2017-06-25] MEDS: HYDRALAZINE HCL 20 MG/ML VIAL IV PRN (06:22)
[2017-06-25] MEDS: ENOXAPARIN SODIUM 30 MG/0.3 ML SQ SCH (09:00)
[2017-06-25] MEDS: CITALOPRAM 20 MG TABLET PO SCH (09:00)
[2017-06-25] MEDS: FAMOTIDINE 20MG TAB 20 MG TAB PO SCH (09:00)
[2017-06-25] MEDS: LISINOPRIL 10 MG TABLET PO SCH (09:00)
[2017-06-25] MEDS: FUROSEMIDE 20 MG TABLET PO SCH (09:00)
[2017-06-25] MEDS: IRON SUCROSE COMPLEX 100 MG in SODIUM CHLORIDE 0.9% 50 ML IV SCH (09:00)
[2017-06-25] MEDS: METOPROLOL TARTRATE 25 MG TAB PO SCH ×2 (09:00→21:00)
[2017-06-25] MEDS ORDERED: GENTAMICIN SULFATE 80 MG/2 ML VIAL ONE (12:11)
[2017-06-25] MEDS ORDERED: BACITRACIN 50,000 UNIT VIAL ONE (12:11)
[2017-06-25] MEDS ORDERED: CEFAZOLIN SODIUM 1 GM VIAL ONE (12:11)
[2017-06-25] MEDS ORDERED: OXYMETAZOLINE HCL SPRAY 15 ML BOTTLE ONE (12:11)
[2017-06-25] MEDS ORDERED: LIDOCAINE HCL/EPINEPHRINE 50 ML VIAL IJ ONE (12:12)
[2017-06-25] MEDS ORDERED: SODIUM CHLORIDE 0.9% 1000ML 1,000 ML IV ONE (13:11)
[2017-06-25] MEDS ORDERED: MIDAZOLAM HCL 1 MG/ML 2ML VIAL ONE (13:23)
[2017-06-25] MEDS ORDERED: FENTANYL CITRATE PF 50 MCG/1 ML 2ML VIAL ONE ×2 (13:23→14:01)
[2017-06-25] MEDS ORDERED: PROPOFOL 10 MG/ML 20ML VIAL IV ONE ×2 (13:23→15:05)
[2017-06-25] MEDS ORDERED: LABETALOL HCL 5 MG/ML 20ML VIAL IV ONE (14:05)
[2017-06-25] MEDS ORDERED: LIDOCAINE PF 2% 5ML ABBOJECT ONE (15:22)
[2017-06-25] MEDS ORDERED: ROCURONIUM BROMIDE 10MG/1ML 5ML VL ONE (15:22)
[2017-06-25] MEDS ORDERED: PHENYLEPHRINE HCL 10 MG/ML 1ML VIAL IV ONE (15:22)
[2017-06-25] MEDS ORDERED: GLYCOPYRROLATE 0.2 MG/ML 5 ML VIAL ONE (15:22)
[2017-06-25] MEDS ORDERED: NEOSTIGMINE METHYLSULFATE 1MG/ML IV ONE (15:22)
[2017-06-25] MEDS ORDERED: SODIUM CHLORIDE 0.9% 10 ML VIAL ONE (15:22)
[2017-06-25] MEDS ORDERED: INSULIN HUMULIN R 100 UNIT/ML 3ML ONE (17:30)
[2017-06-25] MEDS: INSULIN DEGLUDEC 26 UNIT SQ SCH (21:00)
[2017-06-26] VITALS: BP 147/66
[2017-06-26] MEDS: UNASYN 1.5GM+NS 100ML 100 ML IV SCH ×4 (03:27→21:40)
[2017-06-26 04:00] VITALS: BP 140/61
[2017-06-26 05:31] LABS: HEMATOCRIT 25.3 % (36-48); MEAN CORPUSCULAR HEMOGLOBIN 32.5 pg (27.0-33.0); MEAN CORPUSCULAR VOLUME 95.6 fL (79-99); PLATELET COUNT (AUTO) 278 K/uL (130-400); RED BLOOD CELL COUNT(AUTO) 2.64 MIL/uL (4.00-5.50); RED CELL DISTRIBUTION WIDTH 15.9 % (11.0-15.5); WHITE BLOOD COUNT (AUTO) 8.8 K/uL (4.8-10.8)
[2017-06-26 05:42] LABS: CREATININE 0.9 mg/dL (0.5-1.5); POTASSIUM 4.9 mmol/L (3.5-5.1)
[2017-06-26] MEDS ORDERED: INSULIN HUMULIN R 100 UNIT/ML 3ML ONE (06:23)
[2017-06-26] MEDS: LEVOTHYROXINE 75 MCG TABLET PO SCH (06:24)
[2017-06-26] MEDS: LEVOTHYROXINE 100 MCG TABLET PO SCH (06:24)
[2017-06-26] MEDS ORDERED: GLUCAGON 1MG KIT 1 MG ML IM PRN (06:30)
[2017-06-26] MEDS ORDERED: DEXTROSE 50%-WATER 50 ML DISP.SYRIN IV PRN (06:30)
[2017-06-26 07:00] VITALS: BP 136/60
[2017-06-26] MEDS ORDERED: INSULIN HUMULIN R 100 UNIT/ML 3ML SQ SCH (07:30)
[2017-06-26] MEDS: CITALOPRAM 20 MG TABLET PO SCH (09:36)
[2017-06-26] MEDS: METOPROLOL TARTRATE 25 MG TAB PO SCH ×2 (09:36→19:56)
[2017-06-26] MEDS: FAMOTIDINE 20MG TAB 20 MG TAB PO SCH (09:36)
[2017-06-26] MEDS: FUROSEMIDE 20 MG TABLET PO SCH (09:36)
[2017-06-26] MEDS: IRON SUCROSE COMPLEX 100 MG in SODIUM CHLORIDE 0.9% 50 ML IV SCH (09:37)
[2017-06-26] MEDS: LISINOPRIL 10 MG TABLET PO SCH (09:37)
[2017-06-26] MEDS: INSULIN LISPRO 100 UNIT/ML 3ML SQ SCH ×3 (09:49→16:39)
[2017-06-26 11:00] VITALS: BP 98/46
[2017-06-26] MEDS: NEOMY SULF/BACITRA/POLYMYXIN B 3.5 GM OINT OS SCH ×5 (11:04→23:29)
[2017-06-26 15:00] VITALS: BP 109/57
[2017-06-26] MEDS ORDERED: AMOX-426 PO (15:11)
[2017-06-26] MEDS: INSULIN DEGLUDEC 26 UNIT SQ SCH (19:56)
[2017-06-26 20:06] VITALS: BP 114/50
[2017-06-27] VITALS: BP 137/65
[2017-06-27] MEDS: NEOMY SULF/BACITRA/POLYMYXIN B 3.5 GM OINT OS SCH ×2 (02:58→08:29)
[2017-06-27] MEDS: UNASYN 1.5GM+NS 100ML 100 ML IV SCH ×2 (02:58→10:23)
[2017-06-27] MEDS: ACETAMINOPHEN 325 MG TAB PO PRN (03:03)
[2017-06-27] MEDS: LEVOTHYROXINE 100 MCG TABLET PO SCH (03:03)
[2017-06-27] MEDS: LEVOTHYROXINE 75 MCG TABLET PO SCH (03:03)
[2017-06-27 03:43] VITALS: BP 148/74
[2017-06-27] MEDS: INSULIN LISPRO 100 UNIT/ML 3ML SQ SCH (06:42)
[2017-06-27 07:56] VITALS: BP 143/70
[2017-06-27] MEDS: CITALOPRAM 20 MG TABLET PO SCH (08:27)
[2017-06-27] MEDS: FAMOTIDINE 20MG TAB 20 MG TAB PO SCH (08:27)
[2017-06-27] MEDS: LISINOPRIL 10 MG TABLET PO SCH (08:28)
[2017-06-27] MEDS: FUROSEMIDE 20 MG TABLET PO SCH (08:28)
[2017-06-27] MEDS: IRON SUCROSE COMPLEX 100 MG in SODIUM CHLORIDE 0.9% 50 ML IV SCH (08:28)
== END 2017-06-27 11:50 | disposition home or self-care (01) | DRG 113 ==
LOC: EDH 18:13 → EDHIP 06-18 00:05 → OBSVTOIN 06-18 00:05 → 2CH 06-18 09:02 → 4BH 06-19 18:12
PROVIDERS: ADMIT Internal Medicine; ATTEND Internal Medicine
PROC: 0NUQ0JZ Supplement Left Orbit with Synthetic Substitute, Open Approach (ICD-10-PCS; 2017-06-25)
PROC: 0NSQ04Z Reposition Left Orbit with Internal Fixation Device, Open Approach (ICD-10-PCS; principal; 2017-06-25 13:33)
DX: S02.32XA Fracture of orbital floor, left side, initial encounter for closed fracture (principal); E44.1 Mild protein-calorie malnutrition; D64.9 Anemia, unspecified; E11.9 Type 2 diabetes mellitus without complications; E78.5 Hyperlipidemia, unspecified; E61.1 Iron deficiency; W18.30XA Fall on same level, unspecified, initial encounter; F32.9 Major depressive disorder, single episode, unspecified; S01.81XA Laceration without foreign body of other part of head, initial encounter; I10 Essential (primary) hypertension; M47.812 Spondylosis without myelopathy or radiculopathy, cervical region; E89.0 Postprocedural hypothyroidism; H53.2 Diplopia; J33.8 Other polyp of sinus; Z79.4 Long term (current) use of insulin; Z91.81 History of falling; Y93.89 Activity, other specified; Y92.89 Other specified places as the place of occurrence of the external cause; Y99.8 Other external cause status; Z90.710 Acquired absence of both cervix and uterus; Z83.3 Family history of diabetes mellitus; Z82.49 Family history of ischemic heart disease and other diseases of the circulatory system
CPT/HCPCS: 36415; 70450; 70480; 70486; 70540; 71045; 72125; 72141; 80048; 80053; 81003; 82550; 82553; 82607; 82728; 82746; 82947; 82948; 83874; 83880; 84443; 84484; 85025; 85027; 85610; 85730; 93005; 93880; 94640; 94664; 97039; A4344; A4606; J0295; J0360; J0690; J1100; J1580; J1650; J1756; J1815; J1885; J2001; J2250; J2270; J2370; J2704; J2710; J3010; J3490; J7030; J7070

== ENCOUNTER 2017-07-08 23:26 | Inpatient (IN) | payer MEDICARE ==
[~2017-07-08] VITALS: Ht 149.9 cm; Wt 50.4 kg
[~2017-07-08 23:26] MED LIST changes: +AMOX-426 PO; +INSU100I24 SQ; +MELO-108 PO; +NAPR-1023 PO; +TRAM50TA4 PO
[2017-07-08] MEDS ORDERED: FUROSEMIDE 10 MG/ML 4ML VIAL ONE (23:44)
[2017-07-09 00:11] LABS: BASOPHILS % (AUTO) 1.1 % (0.0-5.0); EOSINOPHILS % (AUTO) 3.4 % (0.0-8.0); HEMATOCRIT 30.6 % (36-48); MEAN CORPUSCULAR HEMOGLOBIN 30.1 pg (27.0-33.0); MEAN CORPUSCULAR HGB CONC 32.4 g/dL (32.0-36.0); MEAN CORPUSCULAR VOLUME 92.8 fL (79-99); MONOCYTES % (AUTO) 9.9 % (3.0-13.0); NEUTROPHILS % (AUTO) 49.6 % (40.0-77.0); PLATELET COUNT (AUTO) 406 K/uL (130-400); RED BLOOD CELL COUNT(AUTO) 3.29 MIL/uL (4.00-5.50); RED CELL DISTRIBUTION WIDTH 15.7 % (11.0-15.5); WHITE BLOOD COUNT (AUTO) 7.9 K/uL (4.8-10.8)
[2017-07-09 00:22] LABS: INR 0.91 (0.85-1.15); PARTIAL THROMBOPLASTIN TIME 25.9 SEC (26.3-35.5); PROTHROMBIN TIME 9.6 SEC (9.6-11.6)
[2017-07-09 00:34] LABS: B-TYPE NATRIURETIC PEPTIDE 494 pg/mL (0-100)
[2017-07-09 00:36] LABS: ALBUMIN 3.6 g/dL (3.5-5.0); BILIRUBIN,TOTAL 0.4 mg/dL (0.2-1.0); CREATINE KINASE MB 1.5 ng/mL (0.5-3.6); CREATININE 1.2 mg/dL (0.5-1.5); TOTAL PROTEIN, SERUM 7.2 g/dL (6.0-8.3)
[2017-07-09 00:39] LABS: POTASSIUM 6.2 mmol/L (3.5-5.1)
[2017-07-09] MEDS ORDERED: CALCIUM GLUCONATE 1 GM/10 ML VIAL IV ONE (00:48)
[2017-07-09] MEDS ORDERED: DEXTROSE 50%-WATER 50 ML DISP.SYRIN IV ONE (00:48)
[2017-07-09] MEDS ORDERED: SODIUM BICARB 50MEQ 50ML VIAL ONE (00:48)
[2017-07-09] MEDS ORDERED: DEXTROSE 5 % AND 0.9 % NACL 1,000 ML IV ONE (00:49)
[2017-07-09] MEDS ORDERED: ALBUTEROL SULFATE 0.083% 2.5 MG/3 ML INH IH ONE (01:06)
[2017-07-09 02:03] LABS: APPEARANCE,URINE Clear (CLEAR); BILIRUBIN,URINE Negative (NEGATIVE); COLOR,URINE Yellow (YELLOW); GLUCOSE, URINE (UA) Negative (NEGATIVE); KETONES,URINE Negative (NEGATIVE); LEUKOCYTE ESTERASE ,URINE Negative (NEGATIVE); NITRATE,URINE Negative (NEGATIVE); OCCULT BLOOD,URINE Negative (NEGATIVE); PROTEIN,URINE Negative (NEGATIVE); UROBILINOGEN,URINE 0.2 mg/dL (0.2-1.0)
[2017-07-09 04:56] VITALS: BP 136/60
[2017-07-09] MEDS ORDERED: DEXTROSE 10%-WATER 1,000 ML IV SCH (05:45)
[2017-07-09] MEDS ORDERED: LIDOCAINE HCL-MPF 1% 2ML VIAL IVP PRN (07:15)
[2017-07-09] MEDS ORDERED: GLUCAGON 1MG KIT 1 MG ML IM PRN ×2 (07:15→15:30)
[2017-07-09] MEDS ORDERED: ACETAMINOPHEN 325 MG TAB PO PRN ×2 (07:15)
[2017-07-09] MEDS ORDERED: DEXTROSE 50%-WATER 50 ML DISP.SYRIN IV PRN ×2 (07:15→15:30)
[2017-07-09] MEDS ORDERED: ONDANSETRON HCL 4 MG/2 ML VIAL IV PRN (07:15)
[2017-07-09] MEDS ORDERED: POTASSIUM CHLORIDE 10% ELIXIR 20 MEQ/15 ML UDCUP PO PRN (07:15)
[2017-07-09] MEDS ORDERED: POTASSIUM CHLORIDE 20MEQ/100ML 100 ML IV PRN (07:15)
[2017-07-09 07:53] VITALS: BP 125/66
[2017-07-09 07:57] LABS: HEMATOCRIT 27.8 % (36-48); MEAN CORPUSCULAR HEMOGLOBIN 30.9 pg (27.0-33.0); MEAN CORPUSCULAR HGB CONC 33.5 g/dL (32.0-36.0); MEAN CORPUSCULAR VOLUME 92.3 fL (79-99); PLATELET COUNT (AUTO) 309 K/uL (130-400); RED BLOOD CELL COUNT(AUTO) 3.02 MIL/uL (4.00-5.50); RED CELL DISTRIBUTION WIDTH 15.5 % (11.0-15.5); WHITE BLOOD COUNT (AUTO) 8.7 K/uL (4.8-10.8)
[2017-07-09 08:18] LABS: INR 0.94 (0.85-1.15); PARTIAL THROMBOPLASTIN TIME 26.3 SEC (26.3-35.5); PROTHROMBIN TIME 9.9 SEC (9.6-11.6)
[2017-07-09 08:22] LABS: HEMOGLOBIN A1C 7.2 % (4.0-6.0)
[2017-07-09 08:35] LABS: CREATININE 1.1 mg/dL (0.5-1.5); THYROID STIMULATING HORMONE 0.06 uIU/mL (0.36-3.74)
[2017-07-09 08:41] LABS: POTASSIUM 6.4 mmol/L (3.5-5.1)
[2017-07-09] MEDS ORDERED: FUROSEMIDE 10 MG/ML 2ML VIAL IVP SCH (09:00)
[2017-07-09] MEDS: SODIUM POLYSTYRENE SULFONATE 15 GM/60 ML ML PO SCH ×5 (09:55→19:00)
[2017-07-09] MEDS: FUROSEMIDE 10 MG/ML 2ML VIAL IV SCH ×2 (09:56→20:45)
[2017-07-09] MEDS: FAMOTIDINE 20MG TAB 20 MG TAB PO SCH (09:56)
[2017-07-09] MEDS ORDERED: MELO-108 PO (10:19)
[2017-07-09] MEDS ORDERED: TYL3 PO (10:19)
[2017-07-09] MEDS ORDERED: NAPR500T6 PO (10:19)
[2017-07-09] MEDS ORDERED: TRISEBA SQ (10:19)
[2017-07-09] MEDS ORDERED: METO10TA41 PO (10:19)
[2017-07-09] MEDS ORDERED: CITA10TA7 PO (10:19)
[2017-07-09] MEDS ORDERED: FURO20TA6 PO (10:19)
[2017-07-09] MEDS ORDERED: TRAM50TA4 PO (10:19)
[2017-07-09 11:05] VITALS: BP 129/65
[2017-07-09] MEDS ORDERED: SODIUM POLYSTYRENE SULFONATE 15 GM/60 ML ML PO SCH ×3 (11:30→19:00)
[2017-07-09] MEDS ORDERED: LEVO200 PO (14:28)
[2017-07-09] MEDS ORDERED: ATOR10 PO (14:28)
[2017-07-09] MEDS ORDERED: ISOS5TAB5 PO (14:41)
[2017-07-09] MEDS ORDERED: LISI-613 PO (14:41)
[2017-07-09] MEDS ORDERED: METO25TA6 PO (14:41)
[2017-07-09] MEDS ORDERED: METF500T6 PO (14:41)
[2017-07-09] MEDS ORDERED: POTA-9 PO (14:41)
[2017-07-09] MEDS ORDERED: ASPI-1197 PO (14:41)
[2017-07-09] MEDS ORDERED: AMLO10TA2 PO (14:41)
[2017-07-09 16:12] VITALS: BP 152/65
[2017-07-09] MEDS: INSULIN HUMULIN R 100 UNIT/ML 3ML SQ SCH ×2 (16:50→20:51)
[2017-07-09] MEDS ORDERED: IPRATROPIUM/ALBUTEROL SULFATE 3 ML SOLUTION IH PRN (18:00)
[2017-07-09 19:00] VITALS: BP 147/57
[2017-07-09] MEDS ORDERED: FUROSEMIDE 10 MG/ML 2ML VIAL IV ONE (19:20)
[2017-07-09] MEDS: ISOSORBIDE DINITRATE 10 MG TABLET PO SCH (20:45)
[2017-07-09] MEDS: METOPROLOL TARTRATE 25 MG TAB PO SCH (20:46)
[2017-07-09] MEDS: ATORVASTATIN CALCIUM 10 MG TABLET PO SCH (20:46)
[2017-07-09 23:32] VITALS: BP 139/62
[2017-07-10 04:00] VITALS: BP 158/84
[2017-07-10 04:28] LABS: INR 0.95 (0.85-1.15); PARTIAL THROMBOPLASTIN TIME 27.7 SEC (26.3-35.5)
[2017-07-10] MEDS: INSULIN HUMULIN R 100 UNIT/ML 3ML SQ SCH ×4 (05:57→21:00)
[2017-07-10] MEDS: LEVOTHYROXINE 150 MCG TABLET PO SCH (06:11)
[2017-07-10 07:53] VITALS: BP 168/79
[2017-07-10] MEDS: LISINOPRIL 20 MG TABLET PO SCH (08:08)
[2017-07-10] MEDS: METOPROLOL TARTRATE 25 MG TAB PO SCH ×2 (08:09→21:00)
[2017-07-10] MEDS: FAMOTIDINE 20MG TAB 20 MG TAB PO SCH (08:09)
[2017-07-10] MEDS: ASPIRIN 81MG TAB.CHEW PO SCH (08:09)
[2017-07-10] MEDS: FUROSEMIDE 10 MG/ML 2ML VIAL IV SCH ×2 (08:09→21:00)
[2017-07-10] MEDS: AMLODIPINE BESYLATE 5 MG TAB PO SCH (08:10)
[2017-07-10] MEDS: METFORMIN HCL 500 MG TABLET PO SCH (08:16)
[2017-07-10] MEDS ORDERED: OFLO35OS OD (08:17)
[2017-07-10] MEDS ORDERED: OFLOXACIN 0.3% 5ML DROPS OD SCH (09:00)
[2017-07-10] MEDS: CIPROFLOXACIN HCL 0.3% 5ML DROPS OD SCH ×4 (09:56→23:57)
[2017-07-10 11:20] LABS: HEPATITIS A ANTIBODY IGM Negative (Negative); HEPATITIS B CORE IGM Negative (Negative); HEPATITIS Bs ANTIGEN SCREEN P Negative (Negative)
[2017-07-10 11:48] VITALS: BP 160/66
[2017-07-10] MEDS: ISOSORBIDE DINITRATE 10 MG TABLET PO SCH ×2 (12:56→23:55)
[2017-07-10 15:58] VITALS: BP 134/55
[2017-07-10 16:15] LABS: HEMATOCRIT 31.9 % (36-48); MEAN CORPUSCULAR HEMOGLOBIN 29.5 pg (27.0-33.0); MEAN CORPUSCULAR HGB CONC 32.5 g/dL (32.0-36.0); MEAN CORPUSCULAR VOLUME 90.6 fL (79-99); PLATELET COUNT (AUTO) 330 K/uL (130-400); RED BLOOD CELL COUNT(AUTO) 3.52 MIL/uL (4.00-5.50); RED CELL DISTRIBUTION WIDTH 15.1 % (11.0-15.5); WHITE BLOOD COUNT (AUTO) 6.8 K/uL (4.8-10.8)
[2017-07-10 16:25] LABS: CREATININE 1.1 mg/dL (0.5-1.5); POTASSIUM 4.1 mmol/L (3.5-5.1)
[2017-07-10 20:00] VITALS: BP 142/62
[2017-07-10] MEDS: ATORVASTATIN CALCIUM 10 MG TABLET PO SCH (21:00)
[2017-07-11] VITALS (12 sets, daily range): BP systolic 126–160; BP diastolic 56–73
[2017-07-11 04:13] LABS: HEMATOCRIT 30.2 % (36-48); MEAN CORPUSCULAR HEMOGLOBIN 31.5 pg (27.0-33.0); MEAN CORPUSCULAR HGB CONC 34.7 g/dL (32.0-36.0); MEAN CORPUSCULAR VOLUME 90.8 fL (79-99); PLATELET COUNT (AUTO) 331 K/uL (130-400); RED BLOOD CELL COUNT(AUTO) 3.32 MIL/uL (4.00-5.50); RED CELL DISTRIBUTION WIDTH 15.1 % (11.0-15.5); WHITE BLOOD COUNT (AUTO) 6.5 K/uL (4.8-10.8)
[2017-07-11 04:17] LABS: CREATININE 0.9 mg/dL (0.5-1.5); POTASSIUM 4.1 mmol/L (3.5-5.1)
[2017-07-11 04:29] LABS: B-TYPE NATRIURETIC PEPTIDE 641 pg/mL (0-100)
[2017-07-11] MEDS: LEVOTHYROXINE 150 MCG TABLET PO SCH (05:08)
[2017-07-11] MEDS: INSULIN HUMULIN R 100 UNIT/ML 3ML SQ SCH ×4 (07:08→20:53)
[2017-07-11] MEDS: METFORMIN HCL 500 MG TABLET PO SCH (08:39)
[2017-07-11] MEDS: LISINOPRIL 20 MG TABLET PO SCH (08:39)
[2017-07-11] MEDS: ASPIRIN 81MG TAB.CHEW PO SCH (08:39)
[2017-07-11] MEDS: FAMOTIDINE 20MG TAB 20 MG TAB PO SCH (08:39)
[2017-07-11] MEDS: ISOSORBIDE DINITRATE 10 MG TABLET PO SCH ×2 (08:39→20:47)
[2017-07-11] MEDS: AMLODIPINE BESYLATE 5 MG TAB PO SCH (08:39)
[2017-07-11] MEDS: FUROSEMIDE 10 MG/ML 2ML VIAL IV SCH (08:40)
[2017-07-11] MEDS: METOPROLOL TARTRATE 25 MG TAB PO SCH ×2 (08:40→20:47)
[2017-07-11] MEDS: CIPROFLOXACIN HCL 0.3% 5ML DROPS OD SCH ×4 (08:40→20:55)
[2017-07-11] MEDS ORDERED: IOPAMIDOL-370 100 ML VIAL IV ONE (11:22)
[2017-07-11 18:26] LABS: APPEARANCE BODY FLUID CLEAR (CLEAR); COLOR,BODY FLUID YELLOW (LT YELLOW); SPECIMENTYPE,BODY FLUID PLEURAL; TOTAL VOLUME,BODY FLUID 1000 mL
[2017-07-11 18:27] LABS: BODY FLUID RBC 416 /cu. mm.; BODY FLUID WBC 129 /cu. mm.
[2017-07-11 18:39] LABS: BF EOSINOPHIL 1 %; BF LYMPHOCYTE 65 %; BF MONOCYTE 5 %; BF OTHER CELLS 7
[2017-07-11] MEDS: ATORVASTATIN CALCIUM 10 MG TABLET PO SCH (20:47)
[2017-07-12 04:00] VITALS: BP 158/70
[2017-07-12] MEDS: LEVOTHYROXINE 150 MCG TABLET PO SCH (06:44)
[2017-07-12] MEDS: INSULIN HUMULIN R 100 UNIT/ML 3ML SQ SCH ×4 (06:58→22:24)
[2017-07-12 08:00] VITALS: BP 137/59
[2017-07-12] MEDS: AMLODIPINE BESYLATE 5 MG TAB PO SCH (08:55)
[2017-07-12] MEDS: FUROSEMIDE 40 MG TABLET PO SCH (08:56)
[2017-07-12] MEDS: METFORMIN HCL 500 MG TABLET PO SCH (08:56)
[2017-07-12] MEDS: FAMOTIDINE 20MG TAB 20 MG TAB PO SCH (08:56)
[2017-07-12] MEDS: ASPIRIN 81MG TAB.CHEW PO SCH (08:56)
[2017-07-12] MEDS: METOPROLOL TARTRATE 25 MG TAB PO SCH ×2 (08:56→22:15)
[2017-07-12] MEDS: LISINOPRIL 20 MG TABLET PO SCH (08:56)
[2017-07-12] MEDS: ISOSORBIDE DINITRATE 10 MG TABLET PO SCH ×2 (08:57→22:15)
[2017-07-12] MEDS: CIPROFLOXACIN HCL 0.3% 5ML DROPS OD SCH ×4 (09:02→21:00)
[2017-07-12 10:51] LABS: TOTAL PROTEIN, SERUM 5.6 g/dL (6.0-8.3)
[2017-07-12 11:42] VITALS: BP 114/44
[2017-07-12 15:35] VITALS: BP 123/44
[2017-07-12 20:10] VITALS: BP 117/50
[2017-07-12] MEDS: ATORVASTATIN CALCIUM 10 MG TABLET PO SCH (22:15)
[2017-07-12 23:40] VITALS: BP 112/50
[2017-07-13 04:03] LABS: BASOPHILS % (AUTO) 0.5 % (0.0-5.0); HEMATOCRIT 29.5 % (36-48); LYMPHOCYTES % (AUTO) 34.6 % (21.0-51.0); MEAN CORPUSCULAR HEMOGLOBIN 30.8 pg (27.0-33.0); MEAN CORPUSCULAR HGB CONC 34.3 g/dL (32.0-36.0); MEAN CORPUSCULAR VOLUME 89.9 fL (79-99); MONOCYTES % (AUTO) 10.7 % (3.0-13.0); NEUTROPHILS % (AUTO) 51.2 % (40.0-77.0); PLATELET COUNT (AUTO) 307 K/uL (130-400); RED BLOOD CELL COUNT(AUTO) 3.28 MIL/uL (4.00-5.50); RED CELL DISTRIBUTION WIDTH 14.9 % (11.0-15.5); WHITE BLOOD COUNT (AUTO) 5.7 K/uL (4.8-10.8)
[2017-07-13 04:27] LABS: POTASSIUM 3.2 mmol/L (3.5-5.1)
[2017-07-13 04:48] VITALS: BP 131/52
[2017-07-13] MEDS: POTASSIUM CHLORIDE 20 MEQ ERTAB PO PRN ×3 (06:31→17:20)
[2017-07-13] MEDS: LEVOTHYROXINE 150 MCG TABLET PO SCH (06:31)
[2017-07-13] MEDS: INSULIN HUMULIN R 100 UNIT/ML 3ML SQ SCH ×4 (06:34→21:00)
[2017-07-13] MEDS ORDERED: PHARMACY COMMUNICATION MISC SCH (08:00)
[2017-07-13] MEDS ORDERED: INSULIN GLARGINE 100 UNITS/ML 10 ML VIAL SQ SCH (08:00)
[2017-07-13 08:56] VITALS: BP 146/63
[2017-07-13] MEDS: LISINOPRIL 20 MG TABLET PO SCH (08:56)
[2017-07-13] MEDS: ISOSORBIDE DINITRATE 10 MG TABLET PO SCH ×2 (08:56→22:00)
[2017-07-13] MEDS: AMLODIPINE BESYLATE 5 MG TAB PO SCH (08:56)
[2017-07-13] MEDS: METFORMIN HCL 500 MG TABLET PO SCH (08:57)
[2017-07-13] MEDS: METOPROLOL TARTRATE 25 MG TAB PO SCH ×2 (08:57→21:59)
[2017-07-13] MEDS: FUROSEMIDE 40 MG TABLET PO SCH (08:57)
[2017-07-13] MEDS: ASPIRIN 81MG TAB.CHEW PO SCH (08:57)
[2017-07-13] MEDS: FAMOTIDINE 20MG TAB 20 MG TAB PO SCH (08:57)
[2017-07-13] MEDS: CIPROFLOXACIN HCL 0.3% 5ML DROPS OD SCH ×4 (08:58→21:00)
[2017-07-13 11:57] VITALS: BP 122/52
[2017-07-13 16:47] VITALS: BP 122/53
[2017-07-13 19:59] VITALS: BP 127/61
[2017-07-13] MEDS ORDERED: ATORVASTATIN CALCIUM 20 MG TABLET PO SCH (21:00)
[2017-07-13] MEDS ORDERED: TRISEBA SQ SCH (21:00)
[2017-07-13 23:00] VITALS: BP 126/59
[2017-07-14 03:00] VITALS: BP 128/75
[2017-07-14 06:04] LABS: CREATININE 0.8 mg/dL (0.5-1.5); POTASSIUM 4.2 mmol/L (3.5-5.1)
[2017-07-14] MEDS: INSULIN HUMULIN R 100 UNIT/ML 3ML SQ SCH ×2 (06:35→11:30)
[2017-07-14] MEDS: LEVOTHYROXINE 150 MCG TABLET PO SCH (06:35)
[2017-07-14 08:00] VITALS: BP 140/61
[2017-07-14] MEDS ORDERED: FUROSEMIDE 20 MG TABLET PO SCH (09:00)
[2017-07-14] MEDS: CIPROFLOXACIN HCL 0.3% 5ML DROPS OD SCH (09:05)
[2017-07-14] MEDS: AMLODIPINE BESYLATE 5 MG TAB PO SCH (09:06)
[2017-07-14] MEDS: METFORMIN HCL 500 MG TABLET PO SCH (09:06)
[2017-07-14] MEDS: ASPIRIN 81MG TAB.CHEW PO SCH (09:06)
[2017-07-14] MEDS: ISOSORBIDE DINITRATE 10 MG TABLET PO SCH (09:06)
[2017-07-14] MEDS: FAMOTIDINE 20MG TAB 20 MG TAB PO SCH (09:06)
[2017-07-14] MEDS: LISINOPRIL 20 MG TABLET PO SCH (09:07)
[2017-07-14] MEDS: METOPROLOL TARTRATE 25 MG TAB PO SCH (09:07)
[2017-07-14] MEDS ORDERED: FURO20TA6 PO (09:13)
[2017-07-14 11:00] VITALS: BP 129/62
[2017-07-14] MEDS ORDERED: INSULIN HUMULIN R 100 UNIT/ML 3ML SQ SCH (11:30)
== END 2017-07-14 12:20 | disposition home or self-care (01) | DRG 292 ==
LOC: EDH 23:26 → OBSVTOIN 07-09 02:45 → EDHIP 07-09 02:45 → 3BH 07-09 03:22
PROVIDERS: ADMIT Family Medicine; ATTEND Family Medicine
PROC: 0W9B3ZZ Drainage of Left Pleural Cavity, Percutaneous Approach (ICD-10-PCS; principal; 2017-07-10)
PROC: 0W993ZZ Drainage of Right Pleural Cavity, Percutaneous Approach (ICD-10-PCS; 2017-07-11)
PROC: 0W9B3ZZ Drainage of Left Pleural Cavity, Percutaneous Approach (ICD-10-PCS; 2017-07-12)
DX: I11.0 Hypertensive heart disease with heart failure (principal); J90 Pleural effusion, not elsewhere classified; L89.301 Pressure ulcer of unspecified buttock, stage 1; E11.649 Type 2 diabetes mellitus with hypoglycemia without coma; I50.31 Acute diastolic (congestive) heart failure; E87.5 Hyperkalemia; D63.8 Anemia in other chronic diseases classified elsewhere; E11.65 Type 2 diabetes mellitus with hyperglycemia; E87.6 Hypokalemia; E89.0 Postprocedural hypothyroidism; R09.02 Hypoxemia; Z90.710 Acquired absence of both cervix and uterus; Z87.81 Personal history of (healed) traumatic fracture
CPT/HCPCS: 32555; 36415; 70551; 71045; 71275; 76604; 80048; 80053; 80074; 81003; 82550; 82553; 82947; 82948; 83036; 83615; 83880; 84132; 84155; 84157; 84443; 84484; 85025; 85027; 85378; 85610; 85730; 87103; 87206; 88108; 89051; 93005; 93306; 94640; 94664; 97039; 99291; A4218; J0610; J1815; J1940; J3490; J7042; J7070; Q9967

== ENCOUNTER 2017-11-23 20:19 | Inpatient (IN) | payer MEDICARE ==
[~2017-11-23] VITALS: Ht 149.9 cm; Wt 48.5 kg
[~2017-11-23 20:19] MED LIST changes: +ACET1TAB12 PO; -AMLO10TA2 PO; +AMLO10TA6 PO; -AMOX-426 PO; +ASPI-1197 PO; -ASPI-555 PO; +ATOR10 PO; -CEPH500C2 PO; -CITA10TA7 PO; +DIPH25CA48 PO; -FURO20TA4 PO; +FURO20TA6 PO; -INSU100C6 SQ; -INSU100I24 SQ; +INSU100I3 SQ; -LEVO125T11 PO; +LEVO200 PO; -LORA10TA7 PO; -MECL-111 PO; -MELO-106 PO; -MELO-108 PO; +METF-444 PO; -METF500T6 PO; -METO10TA3 PO; -NAPR-1023 PO; -ONDA4TAB10 PO; +POTA-9 PO; -SIMV20TA6 PO; -TRAM50TA4 PO; +TRISEBA SQ; -TYL3B PO
[2017-11-23] MEDS ORDERED: ASPIRIN 81MG TAB.CHEW ONE (20:37)
[2017-11-23] MEDS ORDERED: NITROGLYCERIN 0.4 MG SL TAB SL ONE (20:38)
[2017-11-23 21:05] LABS: BASOPHILS % (AUTO) 0.9 % (0.0-5.0); EOSINOPHILS % (AUTO) 3.4 % (0.0-8.0); HEMATOCRIT 31.3 % (36-48); LYMPHOCYTES % (AUTO) 46.3 % (21.0-51.0); MEAN CORPUSCULAR HEMOGLOBIN 31.4 pg (27.0-33.0); MEAN CORPUSCULAR HGB CONC 34.5 g/dL (32.0-36.0); MEAN CORPUSCULAR VOLUME 91.2 fL (79-99); MONOCYTES % (AUTO) 6.7 % (3.0-13.0); NEUTROPHILS % (AUTO) 42.7 % (40.0-77.0); NUCLEATED RED BLOOD CELLS 0.1 % (0.0-0.19); PLATELET COUNT (AUTO) 238 K/uL (130-400); RED BLOOD CELL COUNT(AUTO) 3.44 MIL/uL (4.00-5.50); RED CELL DISTRIBUTION WIDTH 13.2 % (11.0-15.5); WHITE BLOOD COUNT (AUTO) 7.9 K/uL (4.8-10.8)
[2017-11-23 21:15] LABS: CREATININE 1.1 mg/dL (0.5-1.5); POTASSIUM 4.3 mmol/L (3.5-5.1)
[2017-11-23 21:17] LABS: INR 0.9 (0.85-1.15); PARTIAL THROMBOPLASTIN TIME 26.4 SEC (26.3-35.5); PROTHROMBIN TIME 9.5 SEC (9.6-11.6)
[2017-11-23 21:32] LABS: ALBUMIN 3.6 g/dL (3.5-5.0); BILIRUBIN,TOTAL 0.3 mg/dL (0.2-1.0); CREATINE KINASE MB 1.1 ng/mL (0.5-3.6); TOTAL PROTEIN, SERUM 6.9 g/dL (6.0-8.3)
[2017-11-23] MEDS ORDERED: CLONIDINE HCL 0.1 MG TABLET PO PRN (23:45)
[2017-11-23] MEDS ORDERED: ACETAMINOPHEN 325 MG TAB PO PRN (23:45)
[2017-11-23] MEDS ORDERED: LIDOCAINE HCL-MPF 1% 2ML VIAL IJ PRN (23:45)
[2017-11-23] MEDS ORDERED: DiphenhydrAMINE HCL 50 MG/ML VIAL IVP PRN (23:45)
[2017-11-23] MEDS ORDERED: POTASSIUM CHLORIDE 20 MEQ ERTAB PO PRN (23:45)
[2017-11-23] MEDS ORDERED: MORPHINE SULFATE 4 MG/1ML SYG IVP PRN (23:45)
[2017-11-23] MEDS ORDERED: GLUCAGON 1MG KIT 1 MG ML IM PRN (23:45)
[2017-11-23] MEDS ORDERED: ZOLPIDEM TARTRATE 5 MG TAB PO PRN (23:45)
[2017-11-23] MEDS ORDERED: GUAIFENESIN SUGAR-FREE 100 MG/5 ML UDCUP PO PRN (23:45)
[2017-11-23] MEDS ORDERED: POTASSIUM CHLORIDE 20MEQ/100ML 100 ML IV PRN (23:45)
[2017-11-23] MEDS ORDERED: NITROGLYCERIN 0.4 MG SL TAB SL PRN (23:45)
[2017-11-23] MEDS ORDERED: POTASSIUM CHLORIDE 10% ELIXIR 20 MEQ/15 ML UDCUP PO PRN (23:45)
[2017-11-23] MEDS ORDERED: MAG HYDROX/AL HYDROX/SIMETH ES 30 ML SUSP UDCUP PO PRN (23:45)
[2017-11-23] MEDS ORDERED: ONDANSETRON HCL 4 MG/2 ML VIAL IVP PRN (23:45)
[2017-11-23] MEDS ORDERED: LACTULOSE 20 GM/30 ML UDCUP PO PRN (23:45)
[2017-11-23] MEDS ORDERED: DIPHENHYDRAMINE HCL 25 MG CAPSULE PO PRN (23:45)
[2017-11-23] MEDS ORDERED: GUAIFENESIN-DM 200/20 MG 10 ML PO PRN (23:45)
[2017-11-24] MEDS ORDERED: NITROGLYCERIN 1GM/1 INCH PACKET TD ONE ×2 (01:45→08:12)
[2017-11-24 02:24] LABS: CREATINE KINASE MB 1.2 ng/mL (0.5-3.6); CREATINE KINASE, TOTAL 32 U/L (21-232); MYOGLOBIN 32 ng/mL (10-92)
[2017-11-24] MEDS ORDERED: ACETAMINOPHEN 325 MG TAB ONE (02:32)
[2017-11-24 02:44] LABS: TROPONIN I < 0.04 ng/mL (0.00-0.06)
[2017-11-24] MEDS: NITROGLYCERIN 1GM/1 INCH PACKET TD SCH ×3 (06:00→12:00)
[2017-11-24 06:29] LABS: CREATINE KINASE, TOTAL 35 U/L (21-232); MYOGLOBIN 29 ng/mL (10-92); TROPONIN I < 0.04 ng/mL (0.00-0.06)
[2017-11-24] MEDS: INSULIN R PO SS1 SQ SCH ×4 (07:30→21:00)
[2017-11-24] MEDS ORDERED: ENOXAPARIN SODIUM 60 MG/0.6 ML SQ ONE (08:12)
[2017-11-24 08:50] VITALS: BP 170/74
[2017-11-24] MEDS: ENOXAPARIN SODIUM 60 MG/0.6 ML SQ SCH ×2 (08:57)
[2017-11-24] MEDS: ASPIRIN 325 MG TABLET PO SCH (08:57)
[2017-11-24] MEDS ORDERED: LISINOPRIL 20 MG TABLET ONE (10:04)
[2017-11-24] MEDS ORDERED: METOPROLOL TARTRATE 25 MG TAB ONE (10:04)
[2017-11-24] MEDS ORDERED: AMLODIPINE BESYLATE 5 MG TAB PO ONE (10:04)
[2017-11-24] MEDS ORDERED: ACETAMINOPHEN-CODEINE 300/30MG TAB PO PRN (10:15)
[2017-11-24] MEDS ORDERED: DIPHENHYDRAMINE HCL 25 MG PO PRN (10:15)
[2017-11-24 11:00] VITALS: BP 152/80
[2017-11-24 11:34] LABS: CREATINE KINASE MB 1.1 ng/mL (0.5-3.6); CREATINE KINASE, TOTAL 28 U/L (21-232); MYOGLOBIN 33 ng/mL (10-92); TROPONIN I < 0.04 ng/mL (0.00-0.06)
[2017-11-24] MEDS ORDERED: INSULIN HUMULIN R 100 UNIT/ML 3ML SQ SCH ×2 (14:45)
[2017-11-24 16:00] VITALS: BP 99/48
[2017-11-24] MEDS ORDERED: CLOPIDOGREL BISULFATE 75 MG TAB PO SCH (16:00)
[2017-11-24 16:25] VITALS: BP 107/49
[2017-11-24 17:48] VITALS: BP 117/60
[2017-11-24] MEDS ORDERED: GADODIAMIDE 10 MMOL/20 ML ML IV ONE (18:19)
[2017-11-24 19:05] VITALS: BP 149/79
[2017-11-24] MEDS: ISOSORBIDE DINITRATE 10 MG TABLET PO SCH (21:00)
[2017-11-24] MEDS: METOPROLOL TARTRATE 25 MG TAB PO SCH (21:05)
[2017-11-24] MEDS: ATORVASTATIN CALCIUM 10 MG TABLET PO SCH (21:05)
[2017-11-25] VITALS (8 sets, daily range): BP systolic 122–185; BP diastolic 53–82
[2017-11-25] MEDS: LEVOTHYROXINE 112 MCG TABLET PO SCH (06:30)
[2017-11-25] MEDS: INSULIN R PO SS1 SQ SCH (06:42)
[2017-11-25] MEDS: AMLODIPINE BESYLATE 5 MG TAB PO SCH (08:59)
[2017-11-25] MEDS ORDERED: ASPIRIN 81MG TAB.CHEW PO SCH (09:00)
[2017-11-25] MEDS: CLOPIDOGREL BISULFATE 75 MG TAB PO SCH (09:00)
[2017-11-25] MEDS: POTASSIUM CHLORIDE 10 MEQ/TAB.SA PO SCH (09:01)
[2017-11-25] MEDS: ISOSORBIDE DINITRATE 10 MG TABLET PO SCH ×2 (09:01→22:12)
[2017-11-25] MEDS: ASPIRIN 325 MG TABLET PO SCH (09:02)
[2017-11-25] MEDS: METFORMIN HCL 500 MG TABLET PO SCH (09:02)
[2017-11-25] MEDS: LISINOPRIL 20 MG TABLET PO SCH (09:02)
[2017-11-25] MEDS: METOPROLOL TARTRATE 25 MG TAB PO SCH ×2 (09:08→22:12)
[2017-11-25] MEDS ORDERED: REGADENOSON 0.4 MG/5 ML PF SYG IVP SCH (11:00)
[2017-11-25] MEDS: INSULIN HUMULIN R 100 UNIT/ML 3ML SQ SCH ×4 (12:00→20:00)
[2017-11-25] MEDS: DEXTROSE 50%-WATER 50 ML DISP.SYRIN IV PRN ×3 (12:34→16:50)
[2017-11-25] MEDS: ACETAMINOPHEN 325 MG TAB PO PRN (16:41)
[2017-11-25] MEDS: ATORVASTATIN CALCIUM 10 MG TABLET PO SCH (22:12)
[2017-11-26 04:00] VITALS: BP_SYST 61
[2017-11-26] MEDS: INSULIN HUMULIN R 100 UNIT/ML 3ML SQ SCH ×5 (04:00→16:00)
[2017-11-26 05:35] LABS: HEMATOCRIT 31.2 % (36-48); MEAN CORPUSCULAR HEMOGLOBIN 30.6 pg (27.0-33.0); MEAN CORPUSCULAR HGB CONC 32.9 g/dL (32.0-36.0); MEAN CORPUSCULAR VOLUME 93.1 fL (79-99); NUCLEATED RED BLOOD CELLS 0.1 % (0.0-0.19); PLATELET COUNT (AUTO) 183 K/uL (130-400); RED BLOOD CELL COUNT(AUTO) 3.35 MIL/uL (4.00-5.50); RED CELL DISTRIBUTION WIDTH 13.3 % (11.0-15.5); WHITE BLOOD COUNT (AUTO) 8.7 K/uL (4.8-10.8)
[2017-11-26 05:50] LABS: CREATININE 1.5 mg/dL (0.5-1.5); POTASSIUM 4.9 mmol/L (3.5-5.1)
[2017-11-26] MEDS: LEVOTHYROXINE 112 MCG TABLET PO SCH (06:05)
[2017-11-26 07:49] VITALS: BP 127/62
[2017-11-26] MEDS: AMLODIPINE BESYLATE 5 MG TAB PO SCH (09:26)
[2017-11-26] MEDS: METFORMIN HCL 500 MG TABLET PO SCH (09:27)
[2017-11-26] MEDS: METOPROLOL TARTRATE 25 MG TAB PO SCH (09:27)
[2017-11-26] MEDS: ASPIRIN 325 MG TABLET PO SCH (09:27)
[2017-11-26] MEDS: LISINOPRIL 20 MG TABLET PO SCH (09:27)
[2017-11-26] MEDS: CLOPIDOGREL BISULFATE 75 MG TAB PO SCH (09:28)
[2017-11-26] MEDS: POTASSIUM CHLORIDE 10 MEQ/TAB.SA PO SCH (09:28)
[2017-11-26] MEDS: ISOSORBIDE DINITRATE 10 MG TABLET PO SCH (09:31)
[2017-11-26 11:00] VITALS: BP 102/50
[2017-11-26] MEDS ORDERED: INSULIN HUMULIN R 100 UNIT/ML 3ML SQ ONE (14:15)
[2017-11-26 16:00] VITALS: BP 155/55
[2017-11-26] MEDS: DEXTROSE 50%-WATER 50 ML DISP.SYRIN IV PRN ×3 (17:54→19:59)
[2017-11-26] MEDS: ATORVASTATIN CALCIUM 10 MG TABLET PO SCH (19:58)
[2017-11-26] MEDS: ACETAMINOPHEN 325 MG TAB PO PRN (19:59)
== END 2017-11-26 20:15 | disposition home or self-care (01) | DRG 313 ==
LOC: EDH 20:19 → EDHIP 23:45 → INTOOBSV 23:45 → OBSVTOIN 23:45 → 2BH 11-24 08:45 → 3DH 11-24 10:43 → 3CH 11-24 23:58
PROVIDERS: ADMIT Family Medicine; ATTEND Family Medicine
DX: R07.89 Other chest pain (principal); I24.9 Acute ischemic heart disease, unspecified; I65.21 Occlusion and stenosis of right carotid artery; E11.65 Type 2 diabetes mellitus with hyperglycemia; E89.0 Postprocedural hypothyroidism; F41.9 Anxiety disorder, unspecified; I11.9 Hypertensive heart disease without heart failure; R20.2 Paresthesia of skin; R29.810 Facial weakness; Z79.4 Long term (current) use of insulin; Z86.73 Personal history of transient ischemic attack (TIA), and cerebral infarction without residual deficits; Z90.710 Acquired absence of both cervix and uterus
CPT/HCPCS: 36415; 70450; 70544; 70551; 71045; 72125; 78452; 80048; 80053; 82550; 82553; 82947; 82948; 83874; 84484; 85025; 85027; 85610; 85730; 92610; 93005; A9500; A9579; J1650; J1815; J2270; J2405; J2785; J7070

== ENCOUNTER 2018-07-28 17:33 | Observation (INO) | payer MEDICARE ==
[~2018-07-28] VITALS: Ht 121.9 cm; Wt 43.8 kg
[~2018-07-28 17:33] MED LIST changes: -AMLO10TA6 PO; +AMLO10TA7 PO
[2018-07-28] MEDS ORDERED: SODIUM CHLORIDE 0.9% 1000ML 1,000 ML IV ONE (17:59)
[2018-07-28 18:11] LABS: EOSINOPHILS % (AUTO) 3.8 % (0.0-8.0); HEMATOCRIT 32.5 % (36-48); LYMPHOCYTES % (AUTO) 40.8 % (21.0-51.0); MEAN CORPUSCULAR HEMOGLOBIN 30.1 pg (27.0-33.0); MEAN CORPUSCULAR HGB CONC 33.8 g/dL (32.0-36.0); MEAN CORPUSCULAR VOLUME 88.9 fL (79-99); MONOCYTES % (AUTO) 5.7 % (3.0-13.0); NEUTROPHILS % (AUTO) 48.7 % (40.0-77.0); NUCLEATED RED BLOOD CELLS 0.2 % (0.0-0.19); PLATELET COUNT (AUTO) 296 K/uL (130-400); RED BLOOD CELL COUNT(AUTO) 3.66 MIL/uL (4.00-5.50); RED CELL DISTRIBUTION WIDTH 13.5 % (11.0-15.5); WHITE BLOOD COUNT (AUTO) 6.7 K/uL (4.8-10.8)
[2018-07-28 18:25] LABS: CREATININE 1.6 mg/dL (0.5-1.5); POTASSIUM 5.3 mmol/L (3.5-5.1)
[2018-07-28 18:30] LABS: ALBUMIN 3.7 g/dL (3.5-5.0); BILIRUBIN,TOTAL 0.6 mg/dL (0.2-1.0); TOTAL PROTEIN, SERUM 6.9 g/dL (6.0-8.3)
[2018-07-28 21:46] LABS: APPEARANCE,URINE Clear (CLEAR); BILIRUBIN,URINE Negative (NEGATIVE); COLOR,URINE Yellow (YELLOW); GLUCOSE, URINE (UA) 500 mg/dL (NEGATIVE); KETONES,URINE Negative (NEGATIVE); LEUKOCYTE ESTERASE ,URINE Negative (NEGATIVE); NITRATE,URINE Negative (NEGATIVE); OCCULT BLOOD,URINE Negative (NEGATIVE); PROTEIN,URINE Negative (NEGATIVE)
[2018-07-28 22:05] LABS: BACTERIA,URINE Rare /HPF (None Seen); RBC,URINE None Seen /HPF (0-1); WBC,URINE 0-1 /HPF (0-1)
--- NOTE | 2018-07-28 22:24 | NUR ---
SAHARA JORDAN PATIENT POTASSIUM LEVEL WAS 5.3. PAGED MD TO NOTIFY. NO CALL BACK WAS RECEIVED.
[2018-07-28 22:25] VITALS: BP 138/70
[2018-07-28] MEDS ORDERED: INSULIN HUMULIN R 100 UNIT/ML 3ML ONE (22:55)
[2018-07-29] VITALS: BP 140/62
[2018-07-29] MEDS ORDERED: TEMA15CA PO (00:05)
[2018-07-29] MEDS ORDERED: LORA10CA9 PO (00:05)
[2018-07-29] MEDS ORDERED: DICL50TA9 PO (00:05)
[2018-07-29] MEDS ORDERED: POTASSIUM CHLORIDE 20 MEQ ERTAB PO PRN (01:00)
[2018-07-29] MEDS ORDERED: POTASSIUM CHLORIDE 20MEQ/100ML 100 ML IV PRN (01:00)
[2018-07-29] MEDS ORDERED: LIDOCAINE HCL-MPF 1% 2ML VIAL IVP PRN (01:00)
[2018-07-29] MEDS ORDERED: POTASSIUM CHLORIDE 10% ELIXIR 20 MEQ/15 ML UDCUP PO PRN (01:00)
[2018-07-29] MEDS ORDERED: GLUCAGON 1MG KIT 1 MG ML IM PRN (02:00)
[2018-07-29] MEDS ORDERED: IPRATROPIUM/ALBUTEROL SULFATE 3 ML SOLUTION IH PRN (02:00)
[2018-07-29] MEDS ORDERED: ONDANSETRON HCL 4 MG/2 ML VIAL IVP PRN (02:00)
[2018-07-29] MEDS ORDERED: LACTULOSE 20 GM/30 ML UDCUP PO PRN (02:00)
[2018-07-29] MEDS ORDERED: NITROGLYCERIN 0.4 MG SL TAB SL PRN (02:00)
[2018-07-29] MEDS: SODIUM CHLORIDE 0.9% 1000ML 1,000 ML IV SCH ×2 (02:00→11:01)
[2018-07-29] MEDS ORDERED: MAG HYDROX/AL HYDROX/SIMETH ES 30 ML SUSP UDCUP PO PRN (02:00)
[2018-07-29] MEDS ORDERED: ZOLPIDEM TARTRATE 5 MG TAB PO PRN (02:00)
[2018-07-29] MEDS ORDERED: SODIUM CHLORIDE 0.9% 10 ML VIAL IVP PRN (02:00)
[2018-07-29] MEDS ORDERED: DIPHENHYDRAMINE HCL 25 MG CAPSULE PO PRN (02:00)
[2018-07-29] MEDS ORDERED: GUAIFENESIN SUGAR-FREE 100 MG/5 ML UDCUP PO PRN (02:00)
[2018-07-29] MEDS ORDERED: ACETAMINOPHEN 325 MG TAB PO PRN ×2 (02:00)
[2018-07-29] MEDS ORDERED: CLONIDINE HCL 0.1 MG TABLET PO PRN (02:00)
[2018-07-29] MEDS ORDERED: DEXTROSE 50%-WATER 50 ML DISP.SYRIN IV PRN (02:00)
[2018-07-29] MEDS ORDERED: DiphenhydrAMINE HCL 50 MG/ML VIAL IVP PRN (02:00)
[2018-07-29] MEDS: INSULIN HUMULIN R 100 UNIT/ML 3ML SQ SCH ×5 (02:07→21:00)
[2018-07-29 04:00] VITALS: BP 152/72
[2018-07-29 04:59] LABS: HEMATOCRIT 31.1 % (36-48); MEAN CORPUSCULAR HEMOGLOBIN 30.9 pg (27.0-33.0); MEAN CORPUSCULAR HGB CONC 34.5 g/dL (32.0-36.0); MEAN CORPUSCULAR VOLUME 89.7 fL (79-99); PLATELET COUNT (AUTO) 233 K/uL (130-400); RED BLOOD CELL COUNT(AUTO) 3.47 MIL/uL (4.00-5.50); RED CELL DISTRIBUTION WIDTH 13.4 % (11.0-15.5); WHITE BLOOD COUNT (AUTO) 6.2 K/uL (4.8-10.8)
[2018-07-29 05:18] LABS: BILIRUBIN,TOTAL 0.3 mg/dL (0.2-1.0); CREATININE 1.2 mg/dL (0.5-1.5); POTASSIUM 4.4 mmol/L (3.5-5.1)
[2018-07-29 07:00] VITALS: BP 148/60
[2018-07-29 11:00] VITALS: BP 134/73
[2018-07-29] MEDS: FAMOTIDINE 20MG TAB 20 MG TAB PO SCH ×2 (11:00→21:26)
--- NOTE | 2018-07-29 14:23 | NUR ---
DCP CM met with pt discussed dc plans. Pt is semi-independent prior to admission, live at home with son. Has a walker and provider. Denies any other equipments/services. Pt feels safe to go back home, son able to assist with transportation and needs as necessary. DC plan to home once stable. CM to cont to follow up. Addendum: 07/29/18 at 1424 by RASHMI ALVAREZ LVN CM Amended: Links added.
[2018-07-29 16:00] VITALS: BP 147/73
[2018-07-29 19:25] VITALS: BP 147/78
[2018-07-30 00:15] VITALS: BP 161/82
[2018-07-30 04:30] VITALS: BP 155/86
[2018-07-30] MEDS: SODIUM CHLORIDE 0.9% 1000ML 1,000 ML IV SCH (05:52)
[2018-07-30 07:00] VITALS: BP 156/72
[2018-07-30] MEDS: INSULIN HUMULIN R 100 UNIT/ML 3ML SQ SCH ×2 (07:57→11:30)
[2018-07-30] MEDS: FAMOTIDINE 20MG TAB 20 MG TAB PO SCH (08:32)
== END 2018-07-30 15:20 | disposition home or self-care (01) ==
LOC: EDH 17:33 → EDHIP 18:57 → 3DH 21:50
PROVIDERS: ADMIT Family Medicine; ATTEND Family Medicine
DX: E86.0 Dehydration (principal); E11.649 Type 2 diabetes mellitus with hypoglycemia without coma; E11.65 Type 2 diabetes mellitus with hyperglycemia; I95.9 Hypotension, unspecified; E89.0 Postprocedural hypothyroidism; I10 Essential (primary) hypertension; Z90.710 Acquired absence of both cervix and uterus; Z91.11 Patient's noncompliance with dietary regimen; Z79.899 Other long term (current) drug therapy
CPT/HCPCS: 36415 ×2; 71046; 80053 ×2; 81001; 82947 ×2; 82948 ×14; 85025; 85027; 96361 ×2; 96372 ×2; 96374; 97116; 97161; 99284; G0378 ×44; G8978; G8979; G8980; G8981; G8982; G8983; J1815 ×2; J7030 ×2; J7070

== ENCOUNTER → 2020-04-04 | Outpatient (CLI) | payer MEDICARE, OTHER ==
[~2020-04-04] MED LIST changes: +AMLO-258 PO; -AMLO10TA7 PO; +DICL50TA9 PO; +LORA10CA9 PO; +TEMA15CA PO
== END | disposition home or self-care (01) ==
LOC: RAH 08:43
PROVIDERS: ATTEND Family Medicine
DX: K80.20 Calculus of gallbladder without cholecystitis without obstruction (principal)
CPT/HCPCS: 76700

== ENCOUNTER 2021-06-06 12:48 | Emergency (ER) | payer OTHER ==
[~2021-06-06] VITALS: Ht 144.8 cm; Wt 49.9 kg
[~2021-06-06 12:48] MED LIST changes: -ACET1TAB12 PO; -AMLO-258 PO; -ASPI-1197 PO; -ATOR10 PO; +ATOR40TA69 PO; +CARV12.580 PO; +CETI10TA57 PO; +CLOP75TA14 PO; -DICL50TA9 PO; -DIPH25CA48 PO; +DONE-53 PO; -FURO20TA6 PO; -INSU100I3 SQ; +INSU200I SQ; -ISOS5TAB5 PO; -LISI-613 PO; -LORA10CA9 PO; +LOSA25TA41 PO; -METF-444 PO; -METO25TA6 PO; -POTA-9 PO; +STAR227P PO; -TEMA15CA PO
[2021-06-06 13:23] LABS: BASOPHILS % (AUTO) 0.4 % (0.0-5.0); EOSINOPHILS % (AUTO) 1.1 % (0.0-8.0); HEMATOCRIT 37.7 % (36-48); LYMPHOCYTES % (AUTO) 33.5 % (21.0-51.0); MEAN CORPUSCULAR HEMOGLOBIN 30.9 pg (27.0-33.0); MEAN CORPUSCULAR HGB CONC 32.4 g/dL (32.0-36.0); MEAN CORPUSCULAR VOLUME 95.4 fL (79-99); MONOCYTES % (AUTO) 4.5 % (3.0-13.0); PLATELET COUNT (AUTO) 212 K/uL (130-400); RED BLOOD CELL COUNT(AUTO) 3.95 MIL/uL (4.00-5.50); RED CELL DISTRIBUTION WIDTH 14.2 % (11.0-15.5); WHITE BLOOD COUNT (AUTO) 8.1 K/uL (4.8-10.8)
[2021-06-06] MEDS ORDERED: ONDANSETRON 4MG INJ IVP ONE (13:30)
[2021-06-06] MEDS ORDERED: MORPHINE 2 MG SYG IVP ONE (13:30)
[2021-06-06 13:39] LABS: POTASSIUM 4.5 mmol/L (3.5-5.1)
[2021-06-06 13:41] LABS: INR 0.97 (0.85-1.15); PROTHROMBIN TIME 10.6 SEC (9.6-11.6)
[2021-06-06 13:42] LABS: PARTIAL THROMBOPLASTIN TIME 27.9 SEC (26.3-35.5)
[2021-06-06 13:47] LABS: ALBUMIN 3.3 g/dL (3.5-5.0); BILIRUBIN,TOTAL 0.6 mg/dL (0.2-1.0); TOTAL PROTEIN, SERUM 6.3 g/dL (6.0-8.3)
[2021-06-06 14:10] LABS: B-TYPE NATRIURETIC PEPTIDE 392 pg/mL (0-100)
[2021-06-06 14:17] LABS: APPEARANCE,URINE Clear (CLEAR); BILIRUBIN,URINE Negative (NEGATIVE); COLOR,URINE Yellow (YELLOW); GLUCOSE, URINE (UA) Negative (NEGATIVE); KETONES,URINE Negative (NEGATIVE); LEUKOCYTE ESTERASE ,URINE Negative (NEGATIVE); NITRATE,URINE Negative (NEGATIVE); OCCULT BLOOD,URINE Negative (NEGATIVE); PROTEIN,URINE POS 1+ mg/dL (NEGATIVE)
[2021-06-06] MEDS ORDERED: 0.9%NACL 1000ML 1,000 ML IV ONE (14:30)
[2021-06-06 14:45] LABS: BACTERIA,URINE None Seen /HPF (None Seen); MUCUS,URINE Few LPF (None Seen); RBC,URINE 0-1 /HPF (0-1); SQUAMOUS EPITHELIAL CELL,UR None Seen /HPF (0-2); WBC,URINE 0-1 /HPF (0-1)
[2021-06-06 14:46] VITALS: BP 139/60
== END 2021-06-06 17:16 | disposition home or self-care (01) ==
LOC: EDH 12:48
DX: S52.502A Unspecified fracture of the lower end of left radius, initial encounter for closed fracture (principal); S00.83XA Contusion of other part of head, initial encounter; S40.012A Contusion of left shoulder, initial encounter; S70.02XA Contusion of left hip, initial encounter; S80.02XA Contusion of left knee, initial encounter; E87.1 Hypo-osmolality and hyponatremia; E03.9 Hypothyroidism, unspecified; E78.00 Pure hypercholesterolemia, unspecified; I10 Essential (primary) hypertension; I25.10 Atherosclerotic heart disease of native coronary artery without angina pectoris; Z79.02 Long term (current) use of antithrombotics/antiplatelets; Z79.899 Other long term (current) drug therapy; Z95.1 Presence of aortocoronary bypass graft; W18.39XA Other fall on same level, initial encounter; Y93.89 Activity, other specified; Y92.89 Other specified places as the place of occurrence of the external cause; Y99.8 Other external cause status
CPT/HCPCS: 29125; 36415; 70450; 71045; 72125; 73030; 73110; 73130; 73502; 73562; 80053; 81001; 82948; 83880; 84484; 85025; 85610; 85730; 93005; 96361; 96374; 96375; 99285; J2405; J7030

== ENCOUNTER 2021-06-16 15:17 | Emergency (ER) | payer OTHER ==
[~2021-06-16] VITALS: Ht 144.8 cm; Wt 45.4 kg
[2021-06-16 17:12] VITALS: BP 159/72
== END 2021-06-16 18:28 | disposition home or self-care (01) ==
LOC: EDH 15:17
DX: R13.10 Dysphagia, unspecified (principal); I25.10 Atherosclerotic heart disease of native coronary artery without angina pectoris; E78.00 Pure hypercholesterolemia, unspecified; I10 Essential (primary) hypertension; E03.9 Hypothyroidism, unspecified; Z79.899 Other long term (current) drug therapy; Z79.4 Long term (current) use of insulin; Z98.890 Other specified postprocedural states
CPT/HCPCS: 70360; 71045; 93005

== ENCOUNTER 2021-09-25 18:21 | Observation (INO) | payer OTHER ==
[~2021-09-25] VITALS: Ht 152.4 cm; Wt 49.8 kg
[2021-09-25] MEDS ORDERED: CLONIDINE HCL 0.1 MG TABLET PO ONE (19:30)
[2021-09-25 20:11] LABS: BASOPHILS % (AUTO) 0.7 % (0.0-5.0); EOSINOPHILS % (AUTO) 2.6 % (0.0-8.0); HEMATOCRIT 34.4 % (36-48); LYMPHOCYTES % (AUTO) 38.3 % (21.0-51.0); MEAN CORPUSCULAR HEMOGLOBIN 29.3 pg (27.0-33.0); MEAN CORPUSCULAR HGB CONC 32.3 g/dL (32.0-36.0); MEAN CORPUSCULAR VOLUME 90.8 fL (79-99); MONOCYTES % (AUTO) 6.8 % (3.0-13.0); NEUTROPHILS % (AUTO) 50.9 % (40.0-77.0); PLATELET COUNT (AUTO) 183 K/uL (130-400); RED BLOOD CELL COUNT(AUTO) 3.79 MIL/uL (4.00-5.50); RED CELL DISTRIBUTION WIDTH 13.8 % (11.0-15.5); WHITE BLOOD COUNT (AUTO) 5.5 K/uL (4.8-10.8)
[2021-09-25 20:23] LABS: CREATININE 1.4 mg/dL (0.5-1.5); POTASSIUM 4.5 mmol/L (3.5-5.1)
[2021-09-25 20:31] LABS: B-TYPE NATRIURETIC PEPTIDE 591 pg/mL (0-100)
[2021-09-25 20:35] LABS: TOTAL PROTEIN, SERUM 6.4 g/dL (6.0-8.3)
[2021-09-25] MEDS ORDERED: CLONIDINE HCL 0.1 MG TABLET PO PRN (23:00)
[2021-09-25] MEDS ORDERED: ONDANSETRON 4MG INJ IV PRN (23:00)
[2021-09-25] MEDS ORDERED: ACETAMINOPHEN 325 MG TAB PO PRN (23:00)
[2021-09-25] MEDS: PHARMACY COMMUNICATION MISC SCH (23:30)
[2021-09-25] MEDS ORDERED: PANT40TA54 PO (23:41)
[2021-09-25] MEDS ORDERED: METO50TA18 PO (23:44)
[2021-09-25] MEDS ORDERED: LEVO88CA4 PO (23:45)
[2021-09-25] MEDS ORDERED: INSU100I47 SQ (23:51)
[2021-09-26] MEDS: PHARMACY COMMUNICATION MISC SCH ×3 (00:30→23:30)
[2021-09-26 06:43] LABS: BASOPHILS % (AUTO) 0.6 % (0.0-5.0); EOSINOPHILS % (AUTO) 2.7 % (0.0-8.0); HEMATOCRIT 32.8 % (36-48); LYMPHOCYTES % (AUTO) 30.5 % (21.0-51.0); MEAN CORPUSCULAR HEMOGLOBIN 29.6 pg (27.0-33.0); MEAN CORPUSCULAR HGB CONC 32.6 g/dL (32.0-36.0); MEAN CORPUSCULAR VOLUME 90.9 fL (79-99); MONOCYTES % (AUTO) 7.3 % (3.0-13.0); NEUTROPHILS % (AUTO) 58.3 % (40.0-77.0); PLATELET COUNT (AUTO) 175 K/uL (130-400); RED BLOOD CELL COUNT(AUTO) 3.61 MIL/uL (4.00-5.50); RED CELL DISTRIBUTION WIDTH 13.7 % (11.0-15.5); WHITE BLOOD COUNT (AUTO) 4.8 K/uL (4.8-10.8)
[2021-09-26 06:56] LABS: HEMOGLOBIN A1C 9.9 % (4.0-6.0)
[2021-09-26 07:09] LABS: CREATININE 1.3 mg/dL (0.5-1.5); MAGNESIUM 1.8 mg/dL (1.80-2.40); PHOSPHORUS 4.3 mg/dL (2.5-4.9); POTASSIUM 4.5 mmol/L (3.5-5.1); THYROID STIMULATING HORMONE 31.74 uIU/mL (0.36-3.74)
[2021-09-26] MEDS: LEVOTHYROXINE 88 MCG TABLET PO SCH (08:02)
[2021-09-26] MEDS: INSULIN HUMULIN R 100 UNIT/ML 3ML SQ SCH ×4 (08:05→20:43)
[2021-09-26] MEDS ORDERED: METOPROLOL TARTRATE 50 MG TAB PO SCH (09:00)
[2021-09-26] MEDS ORDERED: INSULIN GLARGINE 100 UNITS/ML 10 ML VIAL SQ ONE (10:00)
[2021-09-26] MEDS: DONEPEZIL HCL 5 MG TAB PO SCH (10:03)
[2021-09-26] MEDS: CLOPIDOGREL 75MG TAB PO SCH (10:04)
[2021-09-26] MEDS: CARVEDILOL 12.5 MG TABLET PO SCH ×2 (10:04→20:43)
[2021-09-26] MEDS: FAMOTIDINE 20MG VIAL IV SCH (10:05)
[2021-09-26] MEDS: HEPARIN 5,000 UNIT VIAL SQ SCH ×2 (10:06→20:44)
[2021-09-26 10:17] LABS: CRP QUANTITATIVE < 2.00 mg/L (0.00-9.0)
[2021-09-26 12:00] VITALS: BP 160/74
[2021-09-26 15:37] LABS: APPEARANCE,URINE CLOUDY (CLEAR); BILIRUBIN,URINE NEGATIVE (NEGATIVE); COLOR,URINE YELLOW (YELLOW); GLUCOSE, URINE (UA) >=1000 mg/dL (NEGATIVE); KETONES,URINE NEGATIVE (NEGATIVE); LEUKOCYTE ESTERASE ,URINE SMALL (NEGATIVE); NITRATE,URINE POSITIVE (NEGATIVE); OCCULT BLOOD,URINE NEGATIVE (NEGATIVE); PROTEIN,URINE 30 mg/dL (NEGATIVE); UROBILINOGEN,URINE 0.2 mg/dL (0.2-1.0)
[2021-09-26 15:47] LABS: BACTERIA,URINE Many /HPF (None Seen); MUCUS,URINE Few LPF (None Seen); SQUAMOUS EPITHELIAL CELL,UR Few /HPF (0-2)
[2021-09-26 16:00] VITALS: BP 130/68
[2021-09-26] MEDS: CEFTRIAXONE 1G VIAL IVP SCH (16:39)
[2021-09-26 19:12] VITALS: BP 162/71
[2021-09-26] MEDS: ATORVASTATIN 40 MG TABLET PO SCH (20:42)
[2021-09-26 23:57] VITALS: BP 157/89
[2021-09-27] MEDS: PHARMACY COMMUNICATION MISC SCH ×2 (00:13)
[2021-09-27 03:12] VITALS: BP 157/72
[2021-09-27] MEDS: LEVOTHYROXINE 88 MCG TABLET PO SCH (06:07)
[2021-09-27] MEDS: INSULIN HUMULIN R 100 UNIT/ML 3ML SQ SCH ×6 (06:09→21:00)
[2021-09-27 07:11] LABS: BASOPHILS % (AUTO) 0.6 % (0.0-5.0); EOSINOPHILS % (AUTO) 2.4 % (0.0-8.0); HEMATOCRIT 33.3 % (36-48); LYMPHOCYTES % (AUTO) 22.5 % (21.0-51.0); MEAN CORPUSCULAR HEMOGLOBIN 29.9 pg (27.0-33.0); MEAN CORPUSCULAR HGB CONC 32.7 g/dL (32.0-36.0); MEAN CORPUSCULAR VOLUME 91.2 fL (79-99); MONOCYTES % (AUTO) 4.5 % (3.0-13.0); NEUTROPHILS % (AUTO) 69.6 % (40.0-77.0); PLATELET COUNT (AUTO) 155 K/uL (130-400); RED BLOOD CELL COUNT(AUTO) 3.65 MIL/uL (4.00-5.50); RED CELL DISTRIBUTION WIDTH 13.6 % (11.0-15.5); WHITE BLOOD COUNT (AUTO) 4.9 K/uL (4.8-10.8)
[2021-09-27 07:28] LABS: ALBUMIN 2.7 g/dL (3.5-5.0); CREATININE 1.5 mg/dL (0.5-1.5); MAGNESIUM 1.6 mg/dL (1.80-2.40); POTASSIUM 5.3 mmol/L (3.5-5.1); TOTAL PROTEIN, SERUM 5.9 g/dL (6.0-8.3)
[2021-09-27 08:00] VITALS: BP 134/62
[2021-09-27] MEDS ORDERED: INSULIN GLARGINE 100 UNITS/ML 10 ML VIAL SQ SCH (08:00)
[2021-09-27] MEDS ORDERED: INSULIN HUMULIN R 100 UNIT/ML 3ML SQ SCH (08:30)
[2021-09-27] MEDS: HEPARIN 5,000 UNIT VIAL SQ SCH ×2 (08:31→21:56)
[2021-09-27] MEDS: INSULIN GLARGINE 100 UNITS/ML 10 ML VIAL SQ SCH (08:31)
[2021-09-27] MEDS: CLOPIDOGREL 75MG TAB PO SCH (08:33)
[2021-09-27] MEDS: DONEPEZIL HCL 5 MG TAB PO SCH (08:44)
[2021-09-27] MEDS: FAMOTIDINE 20MG VIAL IV SCH (08:45)
[2021-09-27] MEDS: CARVEDILOL 12.5 MG TABLET PO SCH ×2 (08:58→21:55)
[2021-09-27 12:00] VITALS: BP 140/72
[2021-09-27 16:03] VITALS: BP 160/86
[2021-09-27] MEDS: CEFTRIAXONE 1G VIAL IVP SCH (16:18)
[2021-09-27 20:00] VITALS: BP 156/74
[2021-09-27] MEDS: ATORVASTATIN 40 MG TABLET PO SCH (21:55)
[2021-09-28] VITALS: BP 132/82
[2021-09-28 04:00] VITALS: BP 150/70
[2021-09-28] MEDS: LEVOTHYROXINE 88 MCG TABLET PO SCH (06:18)
[2021-09-28] MEDS: INSULIN HUMULIN R 100 UNIT/ML 3ML SQ SCH ×6 (06:19→17:00)
[2021-09-28] MEDS: INSULIN GLARGINE 100 UNITS/ML 10 ML VIAL SQ SCH (06:20)
[2021-09-28 07:13] LABS: BASOPHILS % (AUTO) 0.3 % (0.0-5.0); EOSINOPHILS % (AUTO) 2.4 % (0.0-8.0); HEMATOCRIT 31.3 % (36-48); LYMPHOCYTES % (AUTO) 26.9 % (21.0-51.0); MEAN CORPUSCULAR HEMOGLOBIN 29.9 pg (27.0-33.0); MEAN CORPUSCULAR HGB CONC 32.9 g/dL (32.0-36.0); MEAN CORPUSCULAR VOLUME 90.7 fL (79-99); MONOCYTES % (AUTO) 6.4 % (3.0-13.0); NEUTROPHILS % (AUTO) 63.3 % (40.0-77.0); PLATELET COUNT (AUTO) 153 K/uL (130-400); RED BLOOD CELL COUNT(AUTO) 3.45 MIL/uL (4.00-5.50); RED CELL DISTRIBUTION WIDTH 13.6 % (11.0-15.5); WHITE BLOOD COUNT (AUTO) 5.8 K/uL (4.8-10.8)
[2021-09-28 07:56] LABS: CREATININE 1.5 mg/dL (0.5-1.5); POTASSIUM 4.4 mmol/L (3.5-5.1)
[2021-09-28 08:00] VITALS: BP 158/74
[2021-09-28] MEDS ORDERED: INSULIN GLARGINE 100 UNITS/ML 10 ML VIAL SQ SCH (08:00)
[2021-09-28] MEDS: PHARMACY COMMUNICATION MISC SCH ×2 (08:02→08:03)
[2021-09-28] MEDS: FAMOTIDINE 20MG VIAL IV SCH (08:53)
[2021-09-28] MEDS: DONEPEZIL HCL 5 MG TAB PO SCH (08:54)
[2021-09-28] MEDS: CARVEDILOL 12.5 MG TABLET PO SCH (08:54)
[2021-09-28] MEDS: CLOPIDOGREL 75MG TAB PO SCH (08:55)
[2021-09-28] MEDS ORDERED: AMLODIPINE 5 MG TAB PO SCH (09:00)
[2021-09-28] MEDS: HEPARIN 5,000 UNIT VIAL SQ SCH (09:34)
[2021-09-28 12:00] VITALS: BP 162/66
[2021-09-28] MEDS ORDERED: AMLO-257 PO (15:47)
[2021-09-28] MEDS ORDERED: CEFU250T87 PO (15:47)
[2021-09-28] MEDS: CEFTRIAXONE 1G VIAL IVP SCH (16:04)
== END 2021-09-28 18:08 | disposition home or self-care (01) ==
LOC: EDH 18:21 → EDHIP 22:58 → INTOOBSV 22:58 → 2DH 09-26 09:04
PROVIDERS: ADMIT Hospitalist; ATTEND Hospitalist
DX: I16.0 Hypertensive urgency (principal); Z20.822 Contact with and (suspected) exposure to COVID-19; E10.65 Type 1 diabetes mellitus with hyperglycemia; F03.90 Unspecified dementia, unspecified severity, without behavioral disturbance, psychotic disturbance, mood disturbance, and anxiety; E89.0 Postprocedural hypothyroidism; I25.10 Atherosclerotic heart disease of native coronary artery without angina pectoris; E78.00 Pure hypercholesterolemia, unspecified; I10 Essential (primary) hypertension; I95.9 Hypotension, unspecified; N17.9 Acute kidney failure, unspecified; E87.5 Hyperkalemia; D72.829 Elevated white blood cell count, unspecified; Z86.73 Personal history of transient ischemic attack (TIA), and cerebral infarction without residual deficits; Z90.710 Acquired absence of both cervix and uterus; Z95.1 Presence of aortocoronary bypass graft; Z79.899 Other long term (current) drug therapy; Z79.4 Long term (current) use of insulin; Z79.890 Hormone replacement therapy
CPT/HCPCS: 99285; 70450; 71045; 87635; 82550; 83874; 84484 ×2; 80053 ×2; 83880; 85025 ×4; 36415 ×4; 93005; 96374; 97161; 96375; 83036; 84443; 83735 ×2; 84100; 80048 ×2; 85651; 87077; 87088; 87186; 87804 ×2; 82948 ×13; 84439; 84481; 86140; 81001; 97039 ×3; 84145 ×2; 96372 ×3; 97530; 97116 ×2; 96376 ×2; J1815 ×10; J3490 ×3; J0696 ×3; J1644 ×5; G0378

== ENCOUNTER 2022-01-03 08:31 | Observation (INO) | payer OTHER ==
[~2022-01-03] VITALS: Ht 149.9 cm; Wt 61.2 kg
[~2022-01-03 08:31] MED LIST changes: +AMLO-257 PO; +CEFU250T87 PO; -CETI10TA57 PO; +INSU100I47 SQ; -LEVO200 PO; +LEVO88CA4 PO; -LOSA25TA41 PO; +PANT40TA54 PO
[2022-01-03 09:10] LABS: BASOPHILS % (AUTO) 0.7 % (0.0-5.0); EOSINOPHILS % (AUTO) 2.9 % (0.0-8.0); HEMATOCRIT 36.6 % (36-48); LYMPHOCYTES % (AUTO) 30.8 % (21.0-51.0); MEAN CORPUSCULAR HEMOGLOBIN 29.7 pg (27.0-33.0); MEAN CORPUSCULAR HGB CONC 33.3 g/dL (32.0-36.0); MEAN CORPUSCULAR VOLUME 89.1 fL (79-99); MONOCYTES % (AUTO) 6.8 % (3.0-13.0); NEUTROPHILS % (AUTO) 58.3 % (40.0-77.0); PLATELET COUNT (AUTO) 220 K/uL (130-400); RED BLOOD CELL COUNT(AUTO) 4.11 MIL/uL (4.00-5.50); WHITE BLOOD COUNT (AUTO) 5.6 K/uL (4.8-10.8)
[2022-01-03 09:18] LABS: CREATININE 1.3 mg/dL (0.5-1.5); POTASSIUM 4.1 mmol/L (3.5-5.1)
[2022-01-03 09:23] LABS: ALBUMIN 3.5 g/dL (3.5-5.0); MAGNESIUM 1.9 mg/dL (1.80-2.40); TOTAL PROTEIN, SERUM 7.5 g/dL (6.0-8.3)
[2022-01-03] MEDS ORDERED: MONT-39 PO (10:38)
[2022-01-03] MEDS ORDERED: AEC81 PO (10:38)
[2022-01-03 12:13] LABS: APPEARANCE,URINE CLOUDY (CLEAR); BILIRUBIN,URINE NEGATIVE (NEGATIVE); COLOR,URINE LIGHT-YELLOW (YELLOW); GLUCOSE, URINE (UA) NEGATIVE (NEGATIVE); KETONES,URINE NEGATIVE (NEGATIVE); LEUKOCYTE ESTERASE ,URINE NEGATIVE Leu/uL (NEGATIVE); NITRATE,URINE 1+ (NEGATIVE); OCCULT BLOOD,URINE NEGATIVE (NEGATIVE); PH,URINE 5.5 (5.0-8.0); PROTEIN,URINE 100 mg/dL (NEGATIVE); UROBILINOGEN,URINE 0.2 mg/dL (0.2-1.0)
[2022-01-03 13:00] LABS: BACTERIA,URINE RARE /HPF (None Seen); MUCUS,URINE RARE LPF (None Seen); RBC,URINE 0-1 /HPF (0-1); SQUAMOUS EPITHELIAL CELL,UR RARE /HPF (0-2)
[2022-01-03] MEDS ORDERED: METOPROLOL SUCCINATE 25 MG TAB.SR.24H PO SCH (14:30)
[2022-01-03 15:02] LABS: INR 0.93 (0.85-1.15); PROTHROMBIN TIME 9.8 SEC (9.6-11.6)
[2022-01-03 15:04] LABS: PARTIAL THROMBOPLASTIN TIME 26.9 SEC (26.3-35.5)
[2022-01-03] MEDS: NITROGLYCERIN 1GM OINT 1 INCH/1GM TD SCH ×2 (16:03→22:21)
[2022-01-03] MEDS: FAMOTIDINE 20MG TAB PO SCH (16:03)
[2022-01-03] MEDS ORDERED: ISOSORBIDE MONO 60MG SR TAB PO SCH (18:30)
[2022-01-03] MEDS ORDERED: LABETALOL 20MG VIAL IV PRN (18:30)
[2022-01-03] MEDS ORDERED: LABETALOL 20MG SYG IV ONE (18:56)
[2022-01-03] MEDS ORDERED: LABETALOL 20MG SYG IV PRN (19:30)
[2022-01-03] MEDS: HYDRALAZINE 25MG TABLET PO SCH ×2 (20:23→21:00)
[2022-01-03] MEDS: FUROSEMIDE 20MG VIAL IV SCH (20:23)
[2022-01-03] MEDS: CARVEDILOL 12.5 MG TABLET PO SCH (20:29)
[2022-01-03] MEDS ORDERED: ATORVASTATIN 40 MG TABLET PO SCH (21:00)
[2022-01-04] MEDS: FUROSEMIDE 20MG VIAL IV SCH ×2 (02:33→10:30)
[2022-01-04] MEDS: NITROGLYCERIN 1GM OINT 1 INCH/1GM TD SCH (06:07)
[2022-01-04] MEDS ORDERED: LEVOTHYROXINE 100 MCG TABLET PO SCH (06:30)
[2022-01-04] MEDS ORDERED: ENOXAPARIN SODIUM 40 MG/0.4 ML SYRINGE SQ SCH (09:00)
[2022-01-04] MEDS ORDERED: ASPIRIN 81MG CHEW TAB PO SCH (09:00)
[2022-01-04] MEDS ORDERED: MONTELUKAST SODIUM 10 MG TAB PO SCH (09:00)
[2022-01-04] MEDS ORDERED: ISOSORBIDE MONO 60MG SR TAB PO SCH (09:00)
[2022-01-04] MEDS ORDERED: DONEPEZIL HCL 5 MG TAB PO SCH (09:00)
[2022-01-04] MEDS ORDERED: PANTOPRAZOLE 40 MG TAB DR PO SCH (09:00)
[2022-01-04] MEDS ORDERED: AMLODIPINE 5 MG TAB PO SCH (09:00)
[2022-01-04] MEDS ORDERED: CLOPIDOGREL 75MG TAB PO SCH (09:00)
[2022-01-04] MEDS: HYDRALAZINE 25MG TABLET PO SCH (10:24)
[2022-01-04 10:26] VITALS: BP 143/76
[2022-01-04] MEDS: CARVEDILOL 12.5 MG TABLET PO SCH (10:26)
[2022-01-04] MEDS: FAMOTIDINE 20MG TAB PO SCH (10:28)
[2022-01-04] MEDS ORDERED: GABA300C PO (10:57)
[2022-01-04] MEDS ORDERED: LEVO100T12 PO (10:57)
[2022-01-04] MEDS ORDERED: DULO30CA52 PO (10:57)
[2022-01-04] MEDS ORDERED: DULOXETINE HCL 30 MG CAP PO SCH ×2 (11:00)
[2022-01-04] MEDS ORDERED: GABAPENTIN 300 MG CAPSULE PO SCH (11:00)
== END 2022-01-04 11:45 | disposition home or self-care (01) ==
LOC: EDH 08:31 → EDHIP 14:28
PROVIDERS: ADMIT Internal Medicine; ATTEND Internal Medicine
DX: R07.89 Other chest pain (principal); Z20.822 Contact with and (suspected) exposure to COVID-19; I10 Essential (primary) hypertension; I25.110 Atherosclerotic heart disease of native coronary artery with unstable angina pectoris; E10.9 Type 1 diabetes mellitus without complications; M47.815 Spondylosis without myelopathy or radiculopathy, thoracolumbar region; D69.2 Other nonthrombocytopenic purpura; E78.00 Pure hypercholesterolemia, unspecified; E03.9 Hypothyroidism, unspecified; Z79.4 Long term (current) use of insulin; Z79.899 Other long term (current) drug therapy; Z95.1 Presence of aortocoronary bypass graft; Z90.49 Acquired absence of other specified parts of digestive tract; Z98.890 Other specified postprocedural states; Z79.82 Long term (current) use of aspirin; Z79.02 Long term (current) use of antithrombotics/antiplatelets
CPT/HCPCS: 96374; 96375; 99285; 84443; 82550 ×3; 83735; 83874 ×3; 84484 ×4; 80053; 83880; 85025; 85610; 85730; 87077; 87088; 87186; 87804 ×2; 81001; 36415 ×2; 87635; 71045; 93005 ×4; 96376; 96372; G0378 ×21; C9803; J1940 ×2; J1650

== ENCOUNTER 2022-10-19 18:53 | Inpatient (IN) | payer OTHER ==
[~2022-10-19] VITALS: Ht 154.9 cm; Wt 69.9 kg
[~2022-10-19 18:53] MED LIST changes: +AEC81 PO; -CEFU250T87 PO; +CLOP-31 PO; -CLOP75TA14 PO; -INSU100I47 SQ; +MONT-39 PO; -STAR227P PO
[2022-10-19 19:38] LABS: BASOPHILS # (AUTO) 0.03 K/uL (0.00-0.20); BASOPHILS % (AUTO) 0.5 % (0.0-5.0); EOSINOPHILS # (AUTO) 0.04 K/uL (0.00-0.70); EOSINOPHILS % (AUTO) 0.7 % (0.0-8.0); HEMATOCRIT 27.7 % (36-48); IMMATURE GRANULOCYTE ABSOLUTE 0.12 K/uL (0-1); LYMPHOCYTES # (AUTO) 1.1 K/uL (1.0-4.8); LYMPHOCYTES % (AUTO) 19.6 % (21.0-51.0); MEAN CORPUSCULAR HEMOGLOBIN 28.6 pg (27.0-33.0); MEAN CORPUSCULAR HGB CONC 32.1 g/dL (32.0-36.0); MEAN CORPUSCULAR VOLUME 89.1 fL (79-99); MONOCYTES # (AUTO) 0.6 K/uL (0.1-1.0); NEUTROPHILS # (AUTO) 3.7 K/uL (1.8-7.7); PLATELET COUNT (AUTO) 255 K/uL (130-400); RED BLOOD CELL COUNT(AUTO) 3.11 MIL/uL (4.00-5.50); RED CELL DISTRIBUTION WIDTH 15.1 % (11.0-15.5); WHITE BLOOD COUNT (AUTO) 5.5 K/uL (4.8-10.8)
[2022-10-19] MEDS ORDERED: CEFTRIAXONE 2GM VIAL ONE (19:47)
[2022-10-19] MEDS ORDERED: ALBUTEROL 0.083% 2.5 MG/3 ML INH IH ONE (20:00)
[2022-10-19] MEDS ORDERED: 0.9%NACL 1000ML 1,000 ML IV SCH (20:00)
[2022-10-19] MEDS ORDERED: ENOXAPARIN SODIUM 80 MG/0.8 ML SQ ONE (20:00)
[2022-10-19] MEDS ORDERED: CEFTRIAXONE 2GM VIAL IVPB ONE (20:00)
[2022-10-19 20:03] LABS: B-TYPE NATRIURETIC PEPTIDE 798 pg/mL (0-100)
[2022-10-19 20:06] LABS: BILIRUBIN,URINE MODERATE mg/dL (NEGATIVE); COLOR,URINE YELLOW (YELLOW); GLUCOSE, URINE (UA) NEGATIVE (NEGATIVE); KETONES,URINE 15 mg/dL (NEGATIVE); LEUKOCYTE ESTERASE ,URINE MODERATE Leu/uL (NEGATIVE); NITRATE,URINE NEGATIVE (NEGATIVE); OCCULT BLOOD,URINE LARGE (NEGATIVE); PH,URINE 5.5 (5.0-8.0); PROTEIN,URINE 100 mg/dL (NEGATIVE)
[2022-10-19 20:11] LABS: ADD UA MICROSCOPIC YES; APPEARANCE,URINE TURBID (CLEAR)
[2022-10-19 20:21] VITALS: PULSE 114; RESP 12
[2022-10-19 20:27] LABS: CREATININE 3.4 mg/dL (0.5-1.5); POTASSIUM 4.5 mmol/L (3.5-5.1)
[2022-10-19 20:29] LABS: ALBUMIN 2.3 g/dL (3.5-5.0); BILIRUBIN,TOTAL 0.4 mg/dL (0.2-1.0); TOTAL PROTEIN, SERUM 5.1 g/dL (6.0-8.3)
[2022-10-19 20:37] LABS: WBC,URINE TNTC /HPF (0-1)
[2022-10-19 20:38] LABS: RBC,URINE 51-100 /HPF (0-1)
[2022-10-19 20:39] LABS: YEAST,URINE BUDDING Few /HPF (None Seen)
[2022-10-19 20:40] LABS: BACTERIA,URINE Moderate /HPF (None Seen); YEAST,URINE HYPHAE Moderate /HPF (None Seen)
[2022-10-19 20:42] LABS: SQUAMOUS EPITHELIAL CELL,UR None Seen /HPF (0-2)
[2022-10-19 20:47] LABS: SARS-CoV-2, RNA, NAAT NEGATIVE SARS CoV-2 (NEGATIVE)
[2022-10-19 20:52] LABS: INFLUENZA TYPE A Negative For Type A (NEGATIVE); INFLUENZA TYPE B Negative For Type B (NEGATIVE)
[2022-10-19] MEDS ORDERED: MAGNESIUM 2GM PREMIX 50ML 50 ML IV PRN (21:30)
[2022-10-19] MEDS ORDERED: ONDANSETRON 4MG INJ IV PRN (21:30)
[2022-10-19] MEDS ORDERED: METOPROLOL TARTRATE 25 MG TAB PO ONE (21:30)
[2022-10-19] MEDS ORDERED: ACETAMINOPHEN 325 MG TAB PO PRN ×2 (21:30)
[2022-10-19] MEDS ORDERED: LACTATED RINGERS 1000ML 1,000 ML IV SCH (21:30)
[2022-10-19] MEDS: DOXYCYCLINE 100MG+NS 250ML 250 ML IV SCH (22:04)
[2022-10-19 23:28] LABS: CREATININE,URINE RANDOM 186 mg/dL (30-135); SODIUM,URINE RANDOM 45 mmol/l (40-220)
[2022-10-20] VITALS (8 sets, daily range): BP systolic 120–141; BP diastolic 50–66; PULSE 61–68; RESP 20–22; O2SAT 97–100
[2022-10-20] MEDS ORDERED: NYST100P2 MC (01:55)
[2022-10-20] MEDS: INSULIN HUMULIN R 100 UNIT/ML 3ML SQ SCH ×4 (05:59→21:54)
[2022-10-20 06:30] LABS: % IRON SATURATION 29.1 % (22-44)
[2022-10-20 08:24] LABS: BASOPHILS # (AUTO) 0.05 K/uL (0.00-0.20); BASOPHILS % (AUTO) 0.8 % (0.0-5.0); EOSINOPHILS # (AUTO) 0.12 K/uL (0.00-0.70); EOSINOPHILS % (AUTO) 1.9 % (0.0-8.0); HEMATOCRIT 32.1 % (36-48); IMMATURE GRANULOCYTE ABSOLUTE 0.12 K/uL (0-1); LYMPHOCYTES # (AUTO) 1.1 K/uL (1.0-4.8); LYMPHOCYTES % (AUTO) 17.9 % (21.0-51.0); MEAN CORPUSCULAR HEMOGLOBIN 28.6 pg (27.0-33.0); MEAN CORPUSCULAR HGB CONC 31.8 g/dL (32.0-36.0); MEAN CORPUSCULAR VOLUME 89.9 fL (79-99); MONOCYTES # (AUTO) 0.4 K/uL (0.1-1.0); MONOCYTES % (AUTO) 6.6 % (3.0-13.0); NEUTROPHILS # (AUTO) 4.4 K/uL (1.8-7.7); NEUTROPHILS % (AUTO) 70.9 % (40.0-77.0); PLATELET COUNT (AUTO) 235 K/uL (130-400); RED BLOOD CELL COUNT(AUTO) 3.57 MIL/uL (4.00-5.50); RED CELL DISTRIBUTION WIDTH 15.1 % (11.0-15.5); WHITE BLOOD COUNT (AUTO) 6.2 K/uL (4.8-10.8)
[2022-10-20] MEDS: ASPIRIN 81MG CHEW TAB PO SCH (08:45)
[2022-10-20] MEDS: PANTOPRAZOLE 40 MG TAB DR PO SCH (08:45)
[2022-10-20] MEDS: METOPROLOL TARTRATE 25 MG TAB PO SCH ×2 (08:45→21:16)
[2022-10-20] MEDS: DOXYCYCLINE 100MG+NS 250ML 250 ML IV SCH ×2 (08:50→21:16)
[2022-10-20 09:16] LABS: CREATININE 2.6 mg/dL (0.5-1.5); MAGNESIUM 1.9 mg/dL (1.80-2.40); PHOSPHORUS 3.7 mg/dL (2.5-4.9); POTASSIUM 4.7 mmol/L (3.5-5.1)
[2022-10-20 09:31] LABS: HEMOGLOBIN A1C 10.1 % (4.0-6.0)
[2022-10-20] MEDS: NYSTATIN 15 GM POWDER TP SCH ×3 (09:56→21:16)
[2022-10-20] MEDS ORDERED: HONEY 1 APPL/ML TUBE TP SCH (10:30)
[2022-10-20] MEDS: 0.9%NACL 1000ML 1,000 ML IV SCH (12:30)
[2022-10-20] MEDS ORDERED: CEFTRIAXONE 1G VIAL IV SCH (20:00)
[2022-10-20] MEDS ORDERED: IRON SUCROSE COMPLEX 300 MG in 0.9% NACL 250ML 250 ML IV ONE (21:00)
[2022-10-21] MEDS: 0.9%NACL 1000ML 1,000 ML IV SCH (01:20)
[2022-10-21 20:00] VITALS: BP 120/62; PULSE 77; RESP 20
[2022-10-22] VITALS (9 sets, daily range): BP systolic 128–150; BP diastolic 57–80; PULSE 61–78; RESP 16–20; O2SAT 97–100
[2022-10-22 00:35] LABS: BILIRUBIN,TOTAL 0.3 mg/dL (0.2-1.0); CREATININE 2.1 mg/dL (0.5-1.5); MAGNESIUM 1.9 mg/dL (1.80-2.40); POTASSIUM 4.2 mmol/L (3.5-5.1)
[2022-10-22] MEDS: INSULIN HUMULIN R 100 UNIT/ML 3ML SQ SCH ×4 (06:04→20:41)
[2022-10-22] MEDS: ASPIRIN 81MG CHEW TAB PO SCH (10:30)
[2022-10-22] MEDS: DOXYCYCLINE 100MG+NS 250ML 250 ML IV SCH ×2 (10:30→20:36)
[2022-10-22] MEDS: METOPROLOL TARTRATE 25 MG TAB PO SCH ×2 (10:31→20:39)
[2022-10-22] MEDS: PANTOPRAZOLE 40 MG TAB DR PO SCH (10:31)
[2022-10-22] MEDS: NYSTATIN 15 GM POWDER TP SCH ×3 (10:33→20:42)
[2022-10-22 11:37] LABS: HEMATOCRIT 28.8 % (36-48); MEAN CORPUSCULAR HEMOGLOBIN 29.1 pg (27.0-33.0); MEAN CORPUSCULAR HGB CONC 32.3 g/dL (32.0-36.0); RED BLOOD CELL COUNT(AUTO) 3.2 MIL/uL (4.00-5.50); RED CELL DISTRIBUTION WIDTH 15.4 % (11.0-15.5)
[2022-10-22 13:49] LABS: MEAN CORPUSCULAR HEMOGLOBIN 29.3 pg (27.0-33.0); MEAN CORPUSCULAR HGB CONC 31.9 g/dL (32.0-36.0); RED BLOOD CELL COUNT(AUTO) 3.48 MIL/uL (4.00-5.50); RED CELL DISTRIBUTION WIDTH 15.8 % (11.0-15.5); WHITE BLOOD COUNT (AUTO) 6.9 K/uL (4.8-10.8)
[2022-10-22 14:02] LABS: CREATININE 1.3 mg/dL (0.5-1.5); POTASSIUM 4.5 mmol/L (3.5-5.1)
[2022-10-22 14:07] LABS: BILIRUBIN,TOTAL 0.4 mg/dL (0.2-1.0)
[2022-10-22 14:17] LABS: PARTIAL THROMBOPLASTIN TIME 31.9 SEC (26.3-35.5)
[2022-10-22] MEDS: AMOX/CLAV 500/125MG TAB PO SCH (15:03)
[2022-10-22] MEDS: 0.9%NACL 1000ML 1,000 ML IV SCH (15:09)
[2022-10-22 15:36] LABS: INR 0.93 (0.85-1.15); PROTHROMBIN TIME 10.3 SEC (9.6-11.6)
[2022-10-22 15:48] LABS: MAGNESIUM 1.7 mg/dL (1.80-2.40); PHOSPHORUS 2.4 mg/dL (2.5-4.9); URIC ACID 5.4 mg/dL (2.6-7.2)
[2022-10-22 16:34] LABS: INR 0.94 (0.85-1.15); PROTHROMBIN TIME 10.9 SEC (9.6-11.6)
[2022-10-22 16:35] LABS: % IRON SATURATION 82.1 % (22-44)
[2022-10-22 18:55] LABS: APPEARANCE,URINE TURBID (CLEAR); BILIRUBIN,URINE NEGATIVE (NEGATIVE); COLOR,URINE YELLOW (YELLOW); GLUCOSE, URINE (UA) >=1000 mg/dL (NEGATIVE); KETONES,URINE NEGATIVE (NEGATIVE); LEUKOCYTE ESTERASE ,URINE 500 Leu/uL (NEGATIVE); NITRATE,URINE NEGATIVE (NEGATIVE); OCCULT BLOOD,URINE SMALL (NEGATIVE); PH,URINE 5.5 (5.0-8.0); PROTEIN,URINE 70 mg/dL (NEGATIVE); UROBILINOGEN,URINE 0.2 mg/dL (0.2-1.0)
[2022-10-22 18:57] LABS: ADD UA MICROSCOPIC YES
[2022-10-22 19:04] LABS: BACTERIA,URINE RARE /HPF (None Seen); MUCUS,URINE RARE LPF (None Seen); NON-SQUAMOUS EPITHELIAL CELL 1 /HPF (0-2); RBC,URINE 26-50 /HPF (0-1); SQUAMOUS EPITHELIAL CELL,UR MOD /HPF (0-2); UNCLASSIFIED CRYSTAL 10 /HPF (None Seen); WBC CLUMP FEW /HPF (0-1); WBC,URINE 51-100 /HPF (0-1); YEAST,URINE BUDDING MOD /HPF (None Seen); YEAST,URINE HYPHAE FEW /HPF (None Seen)
[2022-10-22] MEDS ORDERED: APIXABAN 5 MG TABLET PO SCH (21:00)
[2022-10-23] VITALS (8 sets, daily range): BP systolic 98–166; BP diastolic 59–77; PULSE 75–79; RESP 18; O2SAT 95–97
[2022-10-23] MEDS: DOXYCYCLINE 100MG+NS 250ML 250 ML IV SCH ×3 (00:04→21:30)
[2022-10-23] MEDS: AMOX/CLAV 500/125MG TAB PO SCH ×2 (01:29→12:52)
[2022-10-23] MEDS: INSULIN HUMULIN R 100 UNIT/ML 3ML SQ SCH ×3 (05:36→18:37)
[2022-10-23] MEDS: 0.9%NACL 1000ML 1,000 ML IV SCH (05:37)
[2022-10-23 05:52] LABS: BASOPHILS # (AUTO) 0.06 K/uL (0.00-0.20); EOSINOPHILS # (AUTO) 0.08 K/uL (0.00-0.70); EOSINOPHILS % (AUTO) 1.3 % (0.0-8.0); HEMATOCRIT 29.4 % (36-48); IMMATURE GRANULOCYTE ABSOLUTE 0.26 K/uL (0-1); LYMPHOCYTES # (AUTO) 1.5 K/uL (1.0-4.8); LYMPHOCYTES % (AUTO) 24.8 % (21.0-51.0); MEAN CORPUSCULAR HEMOGLOBIN 29.7 pg (27.0-33.0); MEAN CORPUSCULAR VOLUME 92.7 fL (79-99); MONOCYTES # (AUTO) 0.6 K/uL (0.1-1.0); MONOCYTES % (AUTO) 10.6 % (3.0-13.0); NEUTROPHILS # (AUTO) 3.4 K/uL (1.8-7.7); NEUTROPHILS % (AUTO) 57.9 % (40.0-77.0); PLATELET COUNT (AUTO) 257 K/uL (130-400); RED BLOOD CELL COUNT(AUTO) 3.17 MIL/uL (4.00-5.50); RED CELL DISTRIBUTION WIDTH 15.7 % (11.0-15.5); WHITE BLOOD COUNT (AUTO) 5.9 K/uL (4.8-10.8)
[2022-10-23 05:58] LABS: CREATININE 1.2 mg/dL (0.5-1.5); POTASSIUM 4.3 mmol/L (3.5-5.1)
[2022-10-23] MEDS ORDERED: ENOXAPARIN SODIUM 40 MG/0.4 ML SYRINGE SQ SCH (09:00)
[2022-10-23] MEDS: PANTOPRAZOLE 40 MG TAB DR PO SCH (09:22)
[2022-10-23] MEDS: ASPIRIN 81MG CHEW TAB PO SCH (09:23)
[2022-10-23] MEDS: NYSTATIN 15 GM POWDER TP SCH ×3 (09:23→21:00)
[2022-10-23] MEDS: METOPROLOL TARTRATE 25 MG TAB PO SCH ×2 (09:23→21:00)
[2022-10-23] MEDS ORDERED: AMOX1TAB15 PO (11:12)
[2022-10-23] MEDS ORDERED: DOXY100T2 PO (11:12)
[2022-10-23] MEDS ORDERED: FLUCONAZOLE 100 MG TAB PO ONE (13:00)
== END 2022-10-24 00:40 | disposition home or self-care (01) | DRG 291 ==
LOC: EDH 18:53 → EDHIP 21:27 → 4DH 10-20 00:41
PROVIDERS: ADMIT Internal Medicine; ATTEND Internal Medicine
PROC: 02HV33Z Insertion of Infusion Device into Superior Vena Cava, Percutaneous Approach (ICD-10-PCS; principal; 2022-10-22)
DX: I11.0 Hypertensive heart disease with heart failure (principal); E43 Unspecified severe protein-calorie malnutrition; I50.43 Acute on chronic combined systolic (congestive) and diastolic (congestive) heart failure; J15.9 Unspecified bacterial pneumonia; N17.9 Acute kidney failure, unspecified; N39.0 Urinary tract infection, site not specified; N12 Tubulo-interstitial nephritis, not specified as acute or chronic; B37.2 Candidiasis of skin and nail; Z20.822 Contact with and (suspected) exposure to COVID-19; D64.9 Anemia, unspecified; E11.9 Type 2 diabetes mellitus without complications; Z79.4 Long term (current) use of insulin; Z90.710 Acquired absence of both cervix and uterus; Z95.1 Presence of aortocoronary bypass graft; Z86.73 Personal history of transient ischemic attack (TIA), and cerebral infarction without residual deficits; Z79.82 Long term (current) use of aspirin; Z82.3 Family history of stroke; Z82.49 Family history of ischemic heart disease and other diseases of the circulatory system; Z83.3 Family history of diabetes mellitus
CPT/HCPCS: 36415; 71045; 74230; 76770; 80048; 80053; 81001; 82010; 82550; 82570; 82728; 82948; 83036; 83540; 83550; 83605; 83735; 83874; 83880; 83935; 84100; 84300; 84484; 84550; 85025; 85027; 85610; 85730; 86850; 86900; 86901; 87040; 87088; 87635; 87804; 92610; 92611; 93005; 94640; 97039; C9803; G0378; J0696; J1650; J1756; J1815; J3490; J7050

== ENCOUNTER 2023-02-02 12:30 | Emergency (ER) | payer MEDICARE, OTHER ==
[~2023-02-02] VITALS: Ht 149.9 cm; Wt 54.4 kg
[~2023-02-02 12:30] MED LIST changes: +AMOX1TAB15 PO; +DOXY100T2 PO; +NYST100P2 MC
[2023-02-02] MEDS ORDERED: 0.9%NACL 1000ML 1,000 ML IV ONE (13:00)
[2023-02-02 13:19] LABS: BASOPHILS # (AUTO) 0.01 K/uL (0.00-0.20); BASOPHILS % (AUTO) 0.1 % (0.0-5.0); EOSINOPHILS # (AUTO) 0.01 K/uL (0.00-0.70); EOSINOPHILS % (AUTO) 0.1 % (0.0-8.0); HEMATOCRIT 34.6 % (36-48); IMMATURE GRANULOCYTE ABSOLUTE 0.06 K/uL (0-1); LYMPHOCYTES # (AUTO) 1.9 K/uL (1.0-4.8); LYMPHOCYTES % (AUTO) 19.1 % (21.0-51.0); MEAN CORPUSCULAR HEMOGLOBIN 29.8 pg (27.0-33.0); MEAN CORPUSCULAR HGB CONC 31.8 g/dL (32.0-36.0); MEAN CORPUSCULAR VOLUME 93.8 fL (79-99); MONOCYTES # (AUTO) 0.8 K/uL (0.1-1.0); MONOCYTES % (AUTO) 7.5 % (3.0-13.0); NEUTROPHILS # (AUTO) 7.2 K/uL (1.8-7.7); NEUTROPHILS % (AUTO) 72.6 % (40.0-77.0); PLATELET COUNT (AUTO) 171 K/uL (130-400); RED BLOOD CELL COUNT(AUTO) 3.69 MIL/uL (4.00-5.50); RED CELL DISTRIBUTION WIDTH 15.6 % (11.0-15.5)
[2023-02-02 13:30] LABS: CREATININE 1.9 mg/dL (0.5-1.5); POTASSIUM 3.8 mmol/L (3.5-5.1)
[2023-02-02 13:35] LABS: ALBUMIN 2.5 g/dL (3.5-5.0); BILIRUBIN,TOTAL 0.5 mg/dL (0.2-1.0)
[2023-02-02 16:45] LABS: APPEARANCE,URINE CLOUDY (CLEAR); BACTERIA,URINE FEW /HPF (None Seen); BILIRUBIN,URINE NEGATIVE (NEGATIVE); COLOR,URINE YELLOW (YELLOW); GLUCOSE, URINE (UA) >=1000 mg/dL (NEGATIVE); KETONES,URINE NEGATIVE (NEGATIVE); LEUKOCYTE ESTERASE ,URINE 500 Leu/uL (NEGATIVE); NITRATE,URINE NEGATIVE (NEGATIVE); OCCULT BLOOD,URINE SMALL (NEGATIVE); PH,URINE 6.5 (5.0-8.0); PROTEIN,URINE 50 mg/dL (NEGATIVE); SQUAMOUS EPITHELIAL CELL,UR RARE /HPF (0-2); UROBILINOGEN,URINE 0.2 mg/dL (0.2-1.0); WBC,URINE 51-100 /HPF (0-1)
[2023-02-02] MEDS: 0.9%NACL 1000ML 1,000 ML IV SCH ×2 (18:20→19:06)
[2023-02-02] MEDS ORDERED: CEFTRIAXONE 1G VIAL IVPB ONE (18:30)
[2023-02-02] MEDS ORDERED: CEPH500T PO (20:11)
[2023-02-02] MEDS ORDERED: CEPH500B PO (20:11)
[2023-02-02 21:17] VITALS: BP 115/60; PULSE 80; RESP 14; O2SAT 97
== END 2023-02-02 21:28 | disposition home or self-care (01) ==
LOC: EDH 12:30
DX: N39.0 Urinary tract infection, site not specified (principal); E86.0 Dehydration; E03.9 Hypothyroidism, unspecified; E78.00 Pure hypercholesterolemia, unspecified; F03.90 Unspecified dementia, unspecified severity, without behavioral disturbance, psychotic disturbance, mood disturbance, and anxiety; I48.91 Unspecified atrial fibrillation; Z79.02 Long term (current) use of antithrombotics/antiplatelets; Z79.82 Long term (current) use of aspirin; Z79.899 Other long term (current) drug therapy
CPT/HCPCS: 99285; 96361; 96374; 71045; 80053; 85025; 87088; 81001 ×2; 36415; J0696

== ENCOUNTER 2023-02-24 18:20 | Emergency (ER) | payer OTHER ==
[~2023-02-24] VITALS: Ht 149.9 cm; Wt 49.9 kg
[~2023-02-24 18:20] MED LIST changes: +CEPH500B PO; +CEPH500T PO
== END 2023-02-24 19:20 ==
LOC: EDH 18:20
DX: I46.9 Cardiac arrest, cause unspecified (principal); E78.00 Pure hypercholesterolemia, unspecified; E03.9 Hypothyroidism, unspecified; F32.A Depression, unspecified; M19.90 Unspecified osteoarthritis, unspecified site; Z79.82 Long term (current) use of aspirin; Z79.899 Other long term (current) drug therapy
CPT/HCPCS: 92950